=== PATIENT | male | born 1960 | race Caucasian/White ===

== ENCOUNTER → 2016-05-31 | Outpatient (CLI) | payer OTHER ==
[~2016-05-31] MED LIST: ALLO300T2 PO; ASCA500 PO; ATOR-22 PO; CHOL100010 PO; COEN90TA PO; FEXO1TAB49 PO; GLC/500 PO; LOSA1TAB38 PO; MOME50SP5; MULT-506 PO; NSP500 PO; OMEG10007 PO; POLYSOL4 OP; PRLSR20 PO; RSTOPS OPB
--- NOTE | 2016-05-31 09:08 | DIAGNOSTIC IMAGING REPORT ---
Testicular ultrasound CLINICAL HISTORY: N45.1 [id number] Testicular [id number] COMPARISON STUDY: No previous studies for comparison. FINDINGS: The right testis measures 40 x 23 x 20 mm. The left testis measures 41 x 22 x 24 mm. No intratesticular masses are visualized. There is no evidence of testicular torsion. There is a 6 mm right-sided epididymal cyst. There is no ultrasonographic evidence of acute epididymitis. There is a left-sided varicocele. IMPRESSION: 1. No evidence of intratesticular mass 2. No evidence of testicular torsion 3. No ultrasonographic evidence of acute epididymitis 4. 6 mm right-sided epididymal cyst 5. Left-sided varicocele Electronically signed by: Mika Nicolas M.D. 05/31/2016 9:07 AM Dictated Date/Time: 05/31/2016 9:06 AM
== END | disposition home or self-care (01) ==
LOC: C.ULTR 08:26
PROVIDERS: ATTEND Internal Medicine
DX: N45.1 Epididymitis (principal); N50.819 Testicular pain, unspecified; N50.3 Cyst of epididymis

== ENCOUNTER → 2016-09-24 | Outpatient (CLI) | payer OTHER ==
[2016-09-24 12:39] LABS: CHOLESTEROL/HDL RATIO 2.4
[2016-09-24 12:59] LABS: ESTIMATED AVERAGE GLUCOSE 154 mg/dl; HA1C FLAG Normal (Normal)
== END | disposition home or self-care (01) ==
LOC: C.LABBFT 08:46
PROVIDERS: ATTEND Internal Medicine
DX: E11.9 Type 2 diabetes mellitus without complications (principal)

== ENCOUNTER → 2016-10-19 | Outpatient (CLI) | payer OTHER ==
[2016-10-19 17:26] LABS: BASO % 0.7 %; BASO ABS # 0.06 K/uL (0-0.2); COMPLETE YES; EOS % 1.2 %; HEMATOCRIT 47.1 % (42-52); IG% 0.2 %; LYMPH % 29.7 %; LYMPH ABS # 2.44 K/uL (1.2-3.4); MEAN CELL VOLUME 91.3 fL (80-100); MEAN CORPUSCULAR HEMOGLOBIN 32.2 pg (25-34); MEAN CORPUSCULAR HGB CONC 35.2 g/dl (32-36); MEAN PLATELET VOLUME 11.4 fL (7.4-10.4); MONO % 5.6 %; NEUT % 62.6 %; PLATELET COUNT 212 K/uL (130-400); RED BLOOD COUNT 5.16 M/uL (4.7-6.1); WHITE BLOOD COUNT 8.21 K/uL (4.8-10.8)
[2016-10-19 17:41] LABS: ALT/SGPT 57 U/L (12-78); BLOOD UREA NITROGEN 16 mg/dl (7-18); BUN/CREATININE RATIO 16.8 (10-20); CALCIUM 9.4 mg/dl (8.5-10.1); CARBON DIOXIDE 27 mmol/L (21-32); CHLORIDE 102 mmol/L (98-107); CHOLESTEROL 118 mg/dl (0-200); CREATININE 0.96 mg/dl (0.60-1.40); GLUCOSE 213 mg/dl (70-99); POTASSIUM 4.4 mmol/L (3.5-5.1); SODIUM 137 mmol/L (136-145); TRIGLYCERIDES 133 mg/dl (0-150); URIC ACID 3.9 mg/dl (2.6-7.2); VERY LOW DENSITY LIPOPROT CALC 27 mg/dl
[2016-10-19 17:46] LABS: ALKALINE PHOSPHATASE 63 U/L (45-117); AST/SGOT 33 U/L (15-37); CHOLESTEROL/HDL RATIO 2.5; HDL CHOLESTEROL 47 mg/dl; LDL CHOLESTEROL CALCULATED 44 mg/dl; PROSTATE SPECIFIC ANTIGEN 0.751 ng/ml (0.000-4.000)
[2016-10-19 18:19] LABS: RATIO 9.3 mcg/mg (0-30.0)
[2016-10-19 18:41] LABS: ESTIMATED AVERAGE GLUCOSE 146 mg/dl; HA1C FLAG Normal (Normal)
== END | disposition home or self-care (01) ==
LOC: C.LABBFT 11:09
PROVIDERS: ATTEND Physician Assistant Medical
DX: M1A.9XX0 Chronic gout, unspecified, without tophus (tophi) (principal); Z12.5 Encounter for screening for malignant neoplasm of prostate

== ENCOUNTER → 2016-12-28 | Outpatient (CLI) | payer OTHER ==
--- NOTE | 2016-12-28 15:53 | DIAGNOSTIC IMAGING REPORT ---
KUB CLINICAL HISTORY: 56 years-old Male presenting with M54.5 Low back painN52.9 Male erectile disorder of organic origin. TECHNIQUE: Single supine view of the abdomen was obtained. COMPARISON: CT from 09/18/2014 and 09/03/2014.. FINDINGS: No calcifications project over the renal shadows or along the courses of the ureters. Atherosclerosis noted. Possibility of bowel gas in the small bowel, nonspecific. Moderate stool burden in the right colon and rectum. No pneumoperitoneum. Osseous structures normal. IMPRESSION: 1. No acute intra-abdominal pathology. Electronically signed by: Kasi Camacho M.D. 12/28/2016 3:51 PM Dictated Date/Time: 12/28/2016 3:50 PM
== END | disposition home or self-care (01) ==
LOC: C.RAD1850 14:57
PROVIDERS: ATTEND Urology
DX: N52.9 Male erectile dysfunction, unspecified (principal); N50.819 Testicular pain, unspecified; M54.5 Low back pain

== ENCOUNTER → 2017-05-03 | Outpatient (CLI) | payer OTHER ==
[2017-05-03 12:42] LABS: BASO % 1.4 %; BASO ABS # 0.11 K/uL (0-0.2); EOS ABS # 0.31 K/uL (0-0.5); HEMATOCRIT 45.2 % (42-52); IG# 0.01 K/uL (0.00-0.02); LYMPH % 31.1 %; LYMPH ABS # 2.43 K/uL (1.2-3.4); MEAN CELL VOLUME 91.1 fL (80-100); MEAN CORPUSCULAR HEMOGLOBIN 32.3 pg (25-34); MEAN CORPUSCULAR HGB CONC 35.4 g/dl (32-36); MEAN PLATELET VOLUME 11.1 fL (7.4-10.4); MONO % 7.9 %; MONO ABS # 0.62 K/uL (0.11-0.59); NEUT % 55.5 %; NEUT ABS # 4.34 K/uL (1.4-6.5); PLATELET COUNT 204 K/uL (130-400); RED CELL DISTRIBUTION WIDTH SD 42.8 fL (36.4-46.3); WHITE BLOOD COUNT 7.82 K/uL (4.8-10.8)
[2017-05-03 13:03] LABS: HEMOGLOBIN A1C 6.5 % (4.5-5.6)
[2017-05-03 13:24] LABS: ALT/SGPT 61 U/L (12-78); AST/SGOT 36 U/L (15-37); BLOOD UREA NITROGEN 16 mg/dl (7-18); CALCIUM 9.2 mg/dl (8.5-10.1); CARBON DIOXIDE 31 mmol/L (21-32); CREATININE 0.89 mg/dl (0.60-1.40); GLUCOSE 157 mg/dl (70-99); POTASSIUM 4.3 mmol/L (3.5-5.1); SODIUM 138 mmol/L (136-145)
[2017-05-03 13:28] LABS: ALKALINE PHOSPHATASE 59 U/L (45-117); CHOLESTEROL 102 mg/dl (0-200); LDL CHOLESTEROL CALCULATED 34 mg/dl; TOTAL PROTEIN 7.6 gm/dl (6.4-8.2)
== END | disposition home or self-care (01) ==
LOC: C.LABBFT 08:03
PROVIDERS: ATTEND Internal Medicine
DX: I10 Essential (primary) hypertension (principal); E11.9 Type 2 diabetes mellitus without complications

== ENCOUNTER → 2017-10-31 | Outpatient (CLI) | payer OTHER ==
[2017-10-31 12:44] LABS: BLOOD UREA NITROGEN 15 mg/dl (7-18); CREATININE 1.02 mg/dl (0.60-1.40); GLUCOSE 130 mg/dl (70-99)
[2017-10-31 12:45] LABS: ALBUMIN 4.1 gm/dl (3.4-5.0); ALKALINE PHOSPHATASE 59 U/L (45-117); ALT/SGPT 40 U/L (12-78); AST/SGOT 27 U/L (15-37); CALCIUM 9.3 mg/dl (8.5-10.1); CARBON DIOXIDE 29 mmol/L (21-32); CHOLESTEROL 119 mg/dl (0-200); LDL CHOLESTEROL CALCULATED 43 mg/dl; POTASSIUM 4.5 mmol/L (3.5-5.1); SODIUM 140 mmol/L (136-145); TOTAL PROTEIN 7.9 gm/dl (6.4-8.2); URIC ACID 4.2 mg/dl (2.6-7.2)
== END | disposition home or self-care (01) ==
LOC: C.LABBFT 09:07
PROVIDERS: ATTEND Physician Assistant Medical
DX: E11.9 Type 2 diabetes mellitus without complications (principal); R31.29 Other microscopic hematuria; Z12.5 Encounter for screening for malignant neoplasm of prostate; M1A.9XX0 Chronic gout, unspecified, without tophus (tophi)

== ENCOUNTER → 2017-11-08 | Outpatient (CLI) | payer OTHER ==
--- NOTE | 2017-11-08 14:04 | DIAGNOSTIC IMAGING REPORT ---
CT LUNG SCREENING CHEST, LOW DOSE WITH COMPUTER-AIDED DETECTION (CAD) CLINICAL HISTORY: Smoking/tobacco use history. Lung cancer screening. COMPARISON STUDY: CT scan of the thoracic spine dated 01/21/2015. Abdominal CT dated 09/18/2014. CT DOSE: 75.95 mGycm TECHNIQUE: Low-dose helical CT was acquired without intravenous contrast from lung apices to bases and reconstructed at 2.5 mm every 2 mm. CAD was utilized for this study. A dose lowering technique was utilized adhering to the principles of ALARA. FINDINGS: Thyroid: Imaged portions of the thyroid gland are normal in appearance. Thoracic aorta: There is mild atherosclerotic calcification of the thoracic aorta, which is normal in caliber and demonstrates standard 3-vessel arch anatomy. Heart: The heart is top normal in size and without pericardial effusion. The coronary arteries and aortic valve leaflets are calcified. Lungs and pleural spaces: There is no airspace consolidation or pleural effusion. The trachea and central airways are clear. Tiny calcified granulomas are seen in the right middle lobe along the major fissure and at the left lung base. No concerning pulmonary lesion is seen. Mediastinum: There is no mediastinal lymphadenopathy. Anjana: Not well assessed without IV contrast. Axilla: Clear. Upper abdomen: Partially visualized upper abdominal viscera is grossly unremarkable but not well assessed due to streak artifact. Skeletal structures: The skeletal structures are osteopenic. Degenerative change and hyperkyphosis are noted in the thoracic spine. There are mild superior endplate compression deformities of T5 and T6. No lytic or blastic lesion is identified. IMPRESSION: 1. No concerning pulmonary lesion is identified. 2. There is no airspace consolidation or pleural effusion. CAD FINDINGS: Overall Lung RADS Category: 1 Lung RADS Management Recommendation: Continue annual lung cancer screening. Lung RADS Follow Up Date: 2018-11-08 Electronically signed by: Bradley Perez M.D. 11/08/2017 2:03 PM Dictated Date/Time: 11/08/2017 1:54 PM
== END | disposition home or self-care (01) ==
LOC: C.CTS 13:10
PROVIDERS: ATTEND Internal Medicine
DX: Z87.891 Personal history of nicotine dependence (principal)

== ENCOUNTER 2021-08-10 11:15 | Inpatient (IN) ==
[2021-08-10] MEDS ORDERED: EPINEPHrine INJ 1 MG/ML AMP ONE (11:37)
[2021-08-10] MEDS ORDERED: ePHEDrine sulfate 50 MG/ML AMP ONE (11:37)
[2021-08-10] MEDS ORDERED: FAMOTIDINE 20MG IV PUSH 20 MG/5 ML SYR IV STA (11:39)
[2021-08-10] MEDS ORDERED: SODIUM CHLORIDE 0.9% 1000ML 1,000 ML IV ONE (11:39)
[2021-08-10] MEDS ORDERED: STAT IV Infusion **Titration per Protocol STA ×2 (11:39→13:55)
[2021-08-10] MEDS ORDERED: EPINEPHrine INJ 1 MG/ML AMP IM STA (11:39)
[2021-08-10] MEDS ORDERED: EPINEPHrine/NSS 4 MG/254 ML BAG IV SCH (11:45)
[2021-08-10] MEDS ORDERED: SODIUM CHLORIDE 0.9% 1000ML 1,000 ML IV SCH (11:45)
--- NOTE | 2021-08-10 11:45 | Emergency Department Note ---
Impression & Plan Anaphylaxis, Acute hypotension, Elevated lactic acid level, Leukocytosis, Acute hyperglycemia ED Provider Note Name: ROBERT CHACON Jr Age: 61 Sex: M Arrives Via: Ambulance Informant: Patient, EMS, ED Provider: Frederick Hernandez MD Chief Complaint: Allergic reaction Impression: As per impressions above Medical Decision Making: Pleasant 61-year-old gentleman with a history of hypertension, hypercholesterolemia, type 2 diabetes, depression, aortic stenosis, amongst others arrives for evaluation of acute allergic reaction. Patient notes he was not feeling his normal self yesterday but no specific symptoms. This morning awoke with diffuse hives, itching, rash and weakness. Sent to ER for evaluation via EMS. EMS notes hypotension in the field received IM and IV epi in route. He also received Solu-Medrol, Benadryl, Zofran prior to arrival. Patient arrives with diffuse hives, mild upper lip swelling, significant hypotension systolic BPs in the 70s and 80s. On arrival he is in acute anaphylactic shock and thus was given immediate IM epi followed by an IV epi drip. This vastly improved his symptoms with improvement in blood pressure and rash rapidly improving. Patient somewhat somnolent but awakens answers all questions and I think this is due to the Benadryl. He has no recent infections and no findings of infection at this time. He does have a moderate leukocytosis, hyperglycemia and an elevated lactate. This is all consistent with stress response and a persistent hypotension at home thus while blood cultures were obtained I do not feel that antibiotics are at this point indicated without any clear evidence of infection. Patient was maintained on low-dose epi drip peripherally with excellent response to his blood pressure and he is tolerating this well. I had extensive discussion with him and then with and there is no clear indication of what may have incited this event. Patient has no chest pain, shortness of breath, EKG changes nor other concerning signs or symptoms. He does not have any specific headache or neurologic deficits to be of concern at this time. He is got a mild systolic murmur this is consistent with his aortic stenosis that is reported. He tolerated 3 L of fluid in the ER as given his bump in creatinine his hypotension and then his elevated lactic acid. Hospitalist in to see him multiple times and he was transferred to the ICU for further management. Prior Medical Record and Triage/Nursing Notes reviewed by Me Additional history obtained from chart, , EMS Differentials:Allergic reaction, anaphylaxis, urticaria, Camarena-Magdi syndrome, toxic epidermal necrolysis, erythema multiforme, contact dermatitis, cellulitis, as well as other pathologies. Vital Signs: reviewed and remarkable for hypotension Interventions: Epinephrine 0.5 mg IM, epinephrine drip, normal saline bolus 2 L and then 1 L IV Labs:Reviewed and remarkable for elevated lactic acid, hyperglycemia, mild bump in creatinine, leukocytosis Imagin view chest x-ray no acute findings EKG:Per My Interpretation: Indication hypotension: NSR 92 bpm, qtc 479. No Ectopy. No Ischemia. Compared to EKG 09/10/19, no significant changes. Cardiac/Tele Monitoring: Cardiac Monitoring: An Order was placed for continuous cardiac monitoring. The monitor shows a rate of 90 with a normal sinus rhythm. Consults:Dr Hortencia PETERSON Hospitalist Plan: Disposition:Hospitalization. Condition: Fair History of Present Illness:62-year-old gentleman arrives for evaluation of allergic reaction. Patient notes he was not feeling his normal self yesterday but no specific symptoms. This morning he awoke with hives and went to his primary care doctor. On arrival to his PCP he was noted to be hypotensive with diffuse rash. EMS was called. He received epinephrine 0.3 mg IM, epinephrine IV, Benadryl IV, Solu-Medrol IV, Zofran IV and was brought into the ER. Patient notes he is feeling light headed and tired. He has some mild posterior neck soreness which she stated started in the last couple hours though no specific trauma or injuries. He does feel like he may pass out. He denies any chest pain, shortness of breath, back pain, vomiting, fevers, chills, urinary symptoms, diarrhea, leg swelling or other symptoms. He has not had any recent new medications. He said no issues with recent food intake. He has had no recent fish intake. He has no known allergens nor bug bites. He is not sure what could be causing him to have an allergic reaction. He is never had an allergic reaction like this before. He does admit any exertion seems to make him lightheaded but let rest and laying down seems to make him feeling better. Patient does have type 2 diabetes and admits that he did not take his blood sugar measurements recently. ROS: See above HPI for pertinent positives & negatives. A total of 10 systems reviewed and were otherwise negative. Past Medical History:See Below Past Surgical History:See Below Family History:See Below Social History:See Below Home Medications:See Below Allergies:ndka Vitals:Blood Pressure: 85/54, Pulse 96, RR 16, T 36.7C, O2 96% on RA Physical Exam: GENERAL: Patient is tired/weak appearing and in mild distress. EYES: No scleral icterus, unremarkable pupils. ENT: Mucous membranes dry, no nasal congestion. Mild upper lip swelling NECK: No masses appreciated, nomeningismus, trachea is midline. RESPIRATORY: No dyspnea. Clear to auscultation and equal bilaterally. No wheeze, no rhonchi. CARDIOVASCULAR: Regular rate and rhythm.systolic murmur. No rubs nor gallops appreciated. GASTROINTESTINAL: Abdomen soft, non-tender, no peritonitis.Bowel sounds positive.No masses appreciated. BACK: No midline tenderness, no CVA tenderness EXTREMITIES: Normal motion all extremities, no cyanosis, no edema. NEUROLOGIC: Alert and oriented, no acute motor or sensory deficits, no focal weakness, cranial nerves grossly intact. SKIN: Diffuse hives primarily over abdomen, arms, legs PSYCH: Appropriate GCS: 15 ED Course: Times/Reassessments: Patient with vast improvement in the rash and symptoms following IM/IV epinephrine. Patient closely monitored with many repeat evaluations throughout his stay in the ER Critical Care: I have personally spent 42 minutes of critical care time in the direct management of this patient. Acute anaphylactic shock requiring epinephrine IM and IV. This was a life/limb threatening event. This 42 minutes is in excess of all separately billable procedures. Frederick Hernandez MD Past Med/Surg History Medical History Abrasion Back pain Cardiac murmur Depression Diabetes mellitus, type 2 NIDDM GERD (gastroesophageal reflux disease) Gout Hyperlipidemia Hypertension Knee contusion Osteoarthritis Precancerous skin lesion REMOVED Scoliosis Spinal cord tumor C5 - MONITORING; ROM WNL Surgical History History of bunionectomy History of colonoscopy History of esophagogastroduodenoscopy (EGD) History of herniorrhaphy UMBILICAL History of tonsillectomy Family History Aunt Family history of diabetes mellitus Uncle Family history of diabetes mellitus Father Family history of reaction to anesthesia PT REPORTS FATHER W/O ADEQUATE OXYGEN WHILE UNDER ANESTHESIA DURING VALVE REPLACEMENT SURGERY 8 YEARS AGO - COGNITIVE ISSUES SINCE. Coronary heart disease Brother Diabetes Sister Diabetes Grandfather Hypertension Mother Skin cancer Denies family history of Ovarian cancer Prostate cancer Myocardial infarction Breast cancer Colonic polyp Social History Smoking Status: Former smoker Tobacco Type: Cigarettes Cigarettes Per Day: 40; Second Hand Exposure: No; Do You Dip or Chew Tobacco: No; Tobacco Cessation Education Requested by Patient: No Hx Alcohol Use: No Hx Substance Use: No Preferred Language: Nepalese Communication Ability: Effective Rehab Office Coordinator Required: No Beliefs That Will Affect Care: None marital status: Current Living Situation: Spouse Other Information That Helps Us Care for You: No Feels Safe at Home: Yes Safety Concerns: Feels Safe At This Time Childhood Exposure to Second-Hand Smoke: No caffeine: Yes Dental Care, Regularly: Yes Physical Activity Frequency: Does not Exercise Seatbelt Use: always Sunscreen Use: Yes Assistive Devices: Glasses Allergies Allergies Allergy/AdvReac Type Severity Reaction Status Date / Time No Known Allergies Allergy Verified 08/10/21 14:17 Home Meds Home Medications Medication Instructions Recorded Confirmed ascorbic acid (vitamin C) 500 mg 500 mg PO QAM 04/28/18 08/10/21 tablet (Vitamin C) aspirin 81 mg tablet,delayed 81 mg PO QAM 04/28/18 08/10/21 release calcium carb-Ca gluc 500 mg 1 tab PO QAM 04/28/18 08/10/21 calcium-magnesium ox-Mg gluc 250 mg tablet (Calcium Magnesium) cholecalciferol (vitamin D3) 25 1,000 unit PO QAM 04/28/18 08/10/21 mcg (1,000 unit) tablet (Vitamin D3) coQ10 (ubiquinol) 200 mg capsule 200 mg PO QAM 04/28/18 08/10/21 multivitamin 1 tab PO QAM 04/28/18 08/10/21 omeprazole 20 mg delayed 1 tab PO QAM 04/28/18 08/10/21 release,disintegrating tablet fexofenadine 180 mg tablet 180 mg PO QAM 12/06/18 08/10/21 (Laila Allergy) allopurinol 300 mg tablet 300 mg PO QAM 08/10/21 08/10/21 escitalopram oxalate 20 mg tablet 20 mg PO QAM 08/10/21 08/10/21 Previous Rx's Medication Instructions Recorded blood sugar diagnostic (OneTouch #200 ea 12/06/19 Ultra Blue Test Strip) lancets 33 gauge (OneTouch Delica #100 ea 01/24/20 Lancets) metformin 1,000 mg tablet 1,000 mg PO BID #180 tab 09/10/20 flash glucose scanning reader #1 ea 12/29/20 (FreeStyle Sunil 14 Day [place]) flash glucose sensor (FreeStyle #1 ea 12/29/20 Sunil 14 Day Sensor) atorvastatin 20 mg tablet (Lipitor) 20 mg PO HS #90 tab 04/09/21 losartan 100 mg tablet (Cozaar) 100 mg PO QAM #90 tab 04/09/21 empagliflozin 25 mg tablet 25 mg PO QAM #90 tab 07/08/21 linagliptin 5 mg tablet (Tradjenta) 5 mg PO QAM #90 tab 07/08/21 sildenafil (pulm.hypertension) 20 20 mg PO DAILY PRN #90 tab 07/09/21 mg tablet Results & Data (ED) Vital Signs Vital Signs - 24 hr 08/10/21 11:45 08/10/21 12:00 08/10/21 12:15 Pulse Rate 100 H 94 H 102 H Pulse Rate [Apical] Pulse Rate from SpO2 Sensor 93 H 98 H Pulse Rhythm Respiratory Rate 22 21 19 Respiratory Effort / Characteristics Respiratory Depth Blood Pressure 99/57 L Blood Pressure [Left Arm] Blood Pressure Mean 71 Blood Pressure Mean [Left Arm] Blood Pressure Position [Left Arm] Pulse Oximetry 96 93 Oxygen Delivery Method 08/10/21 12:19 08/10/21 12:30 08/10/21 13:10 Pulse Rate 100 H 98 H Pulse Rate [Apical] 104 H Pulse Rate from SpO2 Sensor 97 H Pulse Rhythm Regular Respiratory Rate 21 16 Respiratory Effort / Characteristics Non-Labored Spontaneous Respiratory Depth Normal Blood Pressure 88/57 L Blood Pressure [Left Arm] 91/55 L Blood Pressure Mean 67 Blood Pressure Mean [Left Arm] 67 Blood Pressure Position [Left Arm] Lying Pulse Oximetry 97 93 96 Oxygen Delivery Method Room Air Room Air Laboratory Data Result diagrams: 08/11/21 04:37 08/11/21 04:37 Lab Results 08/10/21 08/10/21 08/10/21 Range/Units 11:49 11:49 11:57 WBC 18.63 H (4.8-10.8) K/uL RBC 6.04 (4.7-6.1) M/uL Hgb 19.5 H (14.0-18.0) g/dL Hct 55.6 H (42-52) % MCV 92.1 (80-100) fL MCH 32.3 (25-34) pg MCHC 35.1 (32-36) g/dL RDW Std Deviation 44.4 (36.4-46.3) fL RDW Coeff of Emma 13.2 (11.5-14.5) % Plt Count 273 (130-400) K/uL MPV 11.5 H (7.4-10.4) fL Immature Gran % (Auto) 0.3 % Neut % (Auto) 84.6 % Lymph % (Auto) 7.6 % Blair % (Auto) 7.2 % Eos % (Auto) 0.2 % Baso % (Auto) 0.1 % Neut # (Auto) 15.78 H (1.4-6.5) K/uL Lymph # (Auto) 1.41 (1.2-3.4) K/uL Blair # (Auto) 1.34 H (0.11-0.59) K/uL Eos # (Auto) 0.03 (0-0.5) K/uL Baso # (Auto) 0.01 (0-0.2) K/uL Immature Gran # (Auto) 0.06 H (0.00-0.02) K/uL Sodium 135 L (136-145) mmol/L Potassium 5.5 H (3.5-5.1) mmol/L Chloride 100 (98-107) mmol/L Carbon Dioxide 23 (21-32) mmol/L Anion Gap 12 H (3-11) BUN 26 H (6-23) mg/dl Creatinine 1.67 H (0.6-1.4) mg/dl Est Cr Clr Drug Dosing 43.6 ml/min Est GFR ( Amer) 50.1 ml/min Est GFR (Non-Af Amer) 43.2 ml/min BUN/Creatinine Ratio 15.6 (10-20) Glucose 426 H* (70-99(Fasting)) mg/dl Lactate (0.4-2.0) mmol/L Calcium 8.8 (8.5-10.1) mg/dl Magnesium 1.8 (1.7-2.4) mg/dl Total Bilirubin 1.6 H (0.2-1.0) mg/dl Direct Bilirubin 0.3 H (0-0.2) mg/dl AST 22 (13-39) U/L ALT 34 (7-52) U/L Alkaline Phosphatase 60 (34-104) U/L Troponin I High Sens 7.8 (0-20) pg/ml Total Protein 7.0 (6.0-8.3) gm/dl Albumin 4.1 (3.4-5.0) gm/dl Lipase 31 (11-82) U/L Procalcitonin SARS-CoV-2, RNA, NAAT NEGATIVE (NEGATIVE) 08/10/21 08/10/21 Range/Units 13:36 13:36 WBC (4.8-10.8) K/uL RBC (4.7-6.1) M/uL Hgb (14.0-18.0) g/dL Hct (42-52) % MCV (80-100) fL MCH (25-34) pg MCHC (32-36) g/dL RDW Std Deviation (36.4-46.3) fL RDW Coeff of Emma (11.5-14.5) % Plt Count (130-400) K/uL MPV (7.4-10.4) fL Immature Gran % (Auto) % Neut % (Auto) % Lymph % (Auto) % Blair % (Auto) % Eos % (Auto) % Baso % (Auto) % Neut # (Auto) (1.4-6.5) K/uL Lymph # (Auto) (1.2-3.4) K/uL Blair # (Auto) (0.11-0.59) K/uL Eos # (Auto) (0-0.5) K/uL Baso # (Auto) (0-0.2) K/uL Immature Gran # (Auto) (0.00-0.02) K/uL Sodium (136-145) mmol/L Potassium (3.5-5.1) mmol/L Chloride (98-107) mmol/L Carbon Dioxide (21-32) mmol/L Anion Gap (3-11) BUN (6-23) mg/dl Creatinine (0.6-1.4) mg/dl Est Cr Clr Drug Dosing ml/min Est GFR ( Amer) ml/min Est GFR (Non-Af Amer) ml/min BUN/Creatinine Ratio (10-20) Glucose (70-99(Fasting)) mg/dl Lactate 7.3 H* (0.4-2.0) mmol/L Calcium (8.5-10.1) mg/dl Magnesium (1.7-2.4) mg/dl Total Bilirubin (0.2-1.0) mg/dl Direct Bilirubin (0-0.2) mg/dl AST (13-39) U/L ALT (7-52) U/L Alkaline Phosphatase (34-104) U/L Troponin I High Sens (0-20) pg/ml Total Protein (6.0-8.3) gm/dl Albumin (3.4-5.0) gm/dl Lipase (11-82) U/L Procalcitonin Cancelled SARS-CoV-2, RNA, NAAT (NEGATIVE) Administered Medications Ascorbic Acid (Ascorbic Acid 500 Mg Tab) 500 mg PO [facility] Stop: 09/10/21 08:59 Last Admin: 08/11/21 08:20 Dose: 500 mg Documented by: [id number] Aspirin (Aspirin 81 Mg Ectab) 81 mg PO [facility] Stop: 09/10/21 08:59 Last Admin: 08/11/21 08:20 Dose: 81 mg Documented by: [id number] Atorvastatin Calcium (Atorvastatin 20 Mg Tab) 20 mg PO [facility] Stop: 09/09/21 20:59 Last Admin: 08/10/21 20:20 Dose: 20 mg Documented by: [id number] Enoxaparin Sodium (Enoxaparin Inj 40 Mg/0.4 Ml Syr) 40 mg SQ [facility] Stop: 09/10/21 08:59 Last Admin: 08/11/21 08:20 Dose: 40 mg Documented by: [id number] Fexofenadine HCl (Fexofenadine Hcl 180 Mg Tab) 180 mg PO [facility] Stop: 09/10/21 08:59 Last Admin: 08/11/21 08:21 Dose: 180 mg Documented by: [id number] Insulin Human Regular 250 (units/ Sodium Chloride) 250 mls @ 4.6 mls/hr IV .Q24H REPLACED BY [facility]; Protocol Stop: 09/09/21 15:54 Last Titration: 08/11/21 11:30 Dose: 4 units/hr, 4 mls/hr Documented by: [id number] Cosigned by: [id number] Titration: 08/11/21 11:00 Dose: 0 units/hr, 0 mls/hr Documented by: [id number] Cosigned by: [id number] Titration: 08/11/21 10:00 Dose: 6.6 units/hr, 6.6 mls/hr Documented by: [id number] Cosigned by: [id number] Titration: 08/11/21 08:47 Dose: 5.5 units/hr, 5.5 mls/hr Documented by: [id number] Cosigned by: [id number] Titration: 08/11/21 07:40 Dose: 4.6 units/hr, 4.6 mls/hr Documented by: [id number] Cosigned by: [id number] Titration: 08/11/21 06:54 Dose: 5.8 units/hr, 5.8 mls/hr Documented by: [id number] Cosigned by: [id number] Titration: 08/11/21 06:46 Dose: 5.8 units/hr, 5.8 mls/hr Documented by: [id number] Cosigned by: [id number] Titration: 08/11/21 05:40 Dose: 5.8 units/hr, 5.8 mls/hr Documented by: [id number] Cosigned by: [id number] Titration: 08/11/21 04:40 Dose: 5.8 units/hr, 5.8 mls/hr Documented by: [id number] Cosigned by: [id number] Titration: 08/11/21 04:08 Dose: 0 units/hr, 0 mls/hr Documented by: [id number] Cosigned by: [id number] Titration: 08/11/21 02:57 Dose: 9.7 units/hr, 9.7 mls/hr Documented by: [id number] Cosigned by: [id number] Titration: 08/11/21 01:08 Dose: 8.1 units/hr, 8.1 mls/hr Documented by: [id number] Cosigned by: [id number] Titration: 08/10/21 23:50 Dose: 10.1 units/hr, 10.1 mls/hr Documented by: [id number] Cosigned by: [id number] Titration: 08/10/21 22:30 Dose: 7.2 units/hr, 7.2 mls/hr Documented by: [id number] Cosigned by: [id number] Titration: 08/10/21 21:33 Dose: 7.2 units/hr, 7.2 mls/hr Documented by: [id number] Cosigned by: [id number] Titration: 08/10/21 20:36 Dose: 6 units/hr, 6 mls/hr Documented by: [id number] Cosigned by: [id number] Titration: 08/10/21 19:10 Dose: 4.3 units/hr, 4.3 mls/hr Documented by: [id number] Cosigned by: [id number] Titration: 08/10/21 19:03 Dose: 3.6 units/hr, 3.6 mls/hr Documented by: [id number] Cosigned by: [id number] Admin: 08/10/21 17:12 Dose: 2.6 units/hr, 2.6 mls/hr Documented by: [id number] Cosigned by: [id number] Insulin Aspart (Insulin Aspart Per Unit) 0 units SC ACHS REPLACED BY [facility] Stop: 09/09/21 16:29 Last Admin: 08/11/21 07:45 Dose: 11 units Documented by: [id number] Cosigned by: [id number] Admin: 08/10/21 20:13 Dose: Not Given Documented by: [id number] Cosigned by: [id number] Admin: 08/10/21 18:24 Dose: Not Given Documented by: [id number] Vitamin D (Cholecalciferol 1,000 Units 25 Mcg Tab) 1,000 units PO QAM REPLACED BY [facility] Stop: 09/10/21 08:59 Last Admin: 08/11/21 08:20 Dose: 1,000 units Documented by: [id number] Discontinued Medications Ephedrine Sulfate (Ephedrine Sulfate 50 Mg/Ml Amp) Confirm Administered Dose 50 mg .ROUTE .STK-MED ONE Stop: 08/10/21 11:38 Last Admin: 08/10/21 11:48 Dose: Not Given Documented by: [id number] Epinephrine HCl (Epinephrine Inj 1 Mg/Ml Amp) Confirm Administered Dose 1 mg .ROUTE .STK-MED ONE Stop: 08/10/21 11:38 Last Admin: 08/10/21 11:48 Dose: Not Given Documented by: [id number] Epinephrine HCl (Epinephrine Inj 1 Mg/Ml Amp) 0.5 mg IM NOW STA Stop: 08/10/21 11:40 Last Admin: 08/10/21 11:43 Dose: 0.5 mg Documented by: [id number] Sodium Chloride (Nss 1000ml) 1,000 mls @ 999 mls/hr IV .Q1H1M ONE Stop: 08/10/21 12:39 Last Infusion: 08/10/21 12:42 Dose: 0 mls/hr Documented by: [id number] Admin: 08/10/21 11:44 Dose: 999 mls/hr Documented by: [id number] Sodium Chloride (Nss 1000ml) 1,000 mls @ 999 mls/hr IV .Q1H1M [facility]ERY Stop: 08/10/21 12:45 Last Infusion: 08/10/21 13:16 Dose: 0 mls/hr Documented by: [id number] Admin: 08/10/21 12:06 Dose: 999 mls/hr Documented by: [id number] Famotidine (Pepcid 20mg Iv Push) 20 mg in 5 mls @ 2.5 mls/min IV NOW STA Stop: 08/10/21 11:40 Last Admin: 08/10/21 11:47 Dose: 2.5 mls/min Documented by: [id number] Epinephrine HCl () 4 mg in 254 mls @ 8.108 mls/hr IV .Q24H [facility]ERY; Protocol Stop: 09/09/21 11:44 Last Titration: 08/11/21 05:55 Dose: 0 mcg/kg/min, 0 mls/hr Documented by: [id number] Titration: 08/11/21 02:59 Dose: 0.01 mcg/kg/min, 4.1 mls/hr Documented by: [id number] Titration: 08/10/21 19:03 Dose: 0.02 mcg/kg/min, 5.1 mls/hr Documented by: [id number] Cosigned by: [id number] Admin: 08/10/21 11:57 Dose: 0.02 mcg/kg/min, 5.1 mls/hr Documented by: [id number] Cosigned by: [id number] Insulin Human Regular 6 units/ (Syringe) 6 mls @ 30 mls/min IV NOW ONE Stop: 08/10/21 13:16 Last Admin: 08/10/21 14:15 Dose: 30 mls/min Documented by: [id number] Cosigned by: [id number] Lactated Ringer's (Lr) 1,000 mls @ 999 mls/hr IV .Q1H1M ONE Stop: 08/10/21 14:28 Last Infusion: 08/10/21 16:00 Dose: 0 mls/hr Documented by: [id number] Admin: 08/10/21 14:15 Dose: 999 mls/hr Documented by: [id number] Magnesium Sulfate/Dextrose (Magnesium Sulfate / D5w) 1 gm in 100 mls @ 50 mls/hr IV Q2H [facility]ERY Stop: 08/10/21 17:29 Last Infusion: 08/10/21 18:44 Dose: 0 mls/hr Documented by: [id number] Admin: 08/10/21 16:30 Dose: 50 mls/hr Documented by: [id number] Infusion: 08/10/21 16:15 Dose: 50 mls/hr Documented by: [id number] Admin: 08/10/21 14:15 Dose: 50 mls/hr Documented by: [id number] Famotidine 20 mg/ Syringe 5 mls @ 2.5 mls/min IV Q12H REPLACED BY [facility] Stop: 09/09/21 15:54 Last Admin: 08/11/21 04:06 Dose: 2.5 mls/min Documented by: [id number] Admin: 08/10/21 18:22 Dose: 2.5 mls/min Documented by: [id number] Hydrocortisone Sodium (Succinate 100 mg/ Syringe) 2 mls @ 4 mls/min IV NOW STA Stop: 08/10/21 20:01 Last Admin: 08/10/21 20:20 Dose: 4 mls/min Documented by: [id number] Hydrocortisone Sodium (Succinate 50 mg/ Syringe) 1 mls @ 4 mls/min IV Q8H [facility] Stop: 08/14/21 03:59 Last Admin: 08/11/21 04:06 Dose: 4 mls/min Documented by: [id number] Insulin Glargine (Insulin Glargine Solostar 100 Units/Ml 3 Ml Pen) 30 units SC ONE ONE Stop: 08/11/21 11:16 Last Admin: 08/11/21 11:31 Dose: 30 units Documented by: [id number] Cosigned by: [id number] Insulin Human Regular (Novolin-R Bolus From Bag) 2.5 units IV ONE ONE Stop: 08/10/21 16:46 Last Admin: 08/10/21 17:05 Dose: 2.5 units Documented by: [id number] Cosigned by: [id number] Miscellaneous (Stat Iv Infusion Titration Per Protocol) 1 ea N/A NOW STA Stop: 08/10/21 11:40 Last Admin: 08/10/21 19:02 Dose: Not Given Documented by: [id number] Kathy (Stat Iv Infusion Titration Per Protocol) 1 ea N/A NOW STA Stop: 08/10/21 13:56 Last Admin: 08/10/21 19:02 Dose: Not Given Documented by: [id number] Kathy (Icu Electrolyte Replacement Protocol) 1 ea N/A BID@06,18 CHERY; Protocol Stop: 08/17/21 17:59 Last Admin: 08/11/21 05:41 Dose: Not Given Documented by: [id number] Admin: 08/10/21 18:31 Dose: Not Given Documented by: [id number] Kathy (Insulin Protocol Goal Range ) 1 ea N/A ONE ONE Stop: 08/10/21 15:56 Last Admin: 08/10/21 16:30 Dose: 1 ea Documented by: [id number] Pantoprazole Sodium (Pantoprazole 40 Mg Tab) 40 mg PO ONE ONE; Protocol Stop: 08/11/21 11:16 Last Admin: 08/11/21 11:31 Dose: 40 mg Documented by: [id number] Discharge Plan Visit Data Chief Complaint: Allergic Reaction ED Provider: Frederick Hernandez Discharge Problem: Anaphylaxis, Acute hypotension, Elevated lactic acid level, Leukocytosis, Acute hyperglycemia Patient Disposition: Admitted As Inpatient Discharge Instructions Interventions: ED Discharge Assessment Last Done: 08/10/21 16:06
[2021-08-10 12:13] LABS: Basophils # (auto) 0.01 K/uL (0-0.2); Basophils % (auto) 0.1 %; Eosinophils # (auto) 0.03 K/uL (0-0.5); Eosinophils % (auto) 0.2 %; Hematocrit (blood only) 55.6 % (42-52); Hemoglobin 19.5 g/dL (14.0-18.0); Immature Granulocytes # (auto) 0.06 K/uL (0.00-0.02); Immature Granulocytes % (auto) 0.3 %; Lymphocytes # (auto) 1.41 K/uL (1.2-3.4); Lymphocytes % (auto) 7.6 %; Mean Corpuscular Hemoglobin 32.3 pg (25-34); Mean Corpuscular Volume 92.1 fL (80-100); Mean Platelet Volume 11.5 fL (7.4-10.4); Monocytes # (auto) 1.34 K/uL (0.11-0.59); Monocytes % (auto) 7.2 %; Neutrophils # (auto) 15.78 K/uL (1.4-6.5); Neutrophils % (auto) 84.6 %; Platelet Count 273 K/uL (130-400); RDW Coefficient of Variation 13.2 % (11.5-14.5); RDW Standard Deviation 44.4 fL (36.4-46.3); Red Blood Count 6.04 M/uL (4.7-6.1); White Blood Count 18.63 K/uL (4.8-10.8)
--- NOTE | 2021-08-10 12:18 | XRay Report ---
XR chest 1V portable HISTORY: hypotension, ill COMPARISON: Chest 09/10/2019. FINDINGS: A few small left basilar linear densities consistent with subsegmental atelectasis or scarr ing. There are low lung volumes. No focal lung consolidations to suggest pneumonia. The heart is top normal in size. No pleural fusions. No pneumothorax. IMPRESSION: A few left basilar linear densities likely representing scarring or subsegmental atelectasis. Otherwi se, no acute process within the chest. ACT 112: Negative or not required by law. Electronically signed by: Stevo Herrera M.D. 08/10/2021 12:16 PM
[2021-08-10 12:21] LABS: Mean Corpuscular Hgb Conc 35.1 g/dL (32-36)
[2021-08-10 12:41] LABS: Troponin I High Sensitivity 7.8 pg/ml (0-20)
[2021-08-10 12:49] LABS: Albumin Level 4.1 gm/dl (3.4-5.0); BUN Creatinine Ratio 15.6 (10-20); Bilirubin Direct 0.3 mg/dl (0-0.2); Bilirubin,Total 1.6 mg/dl (0.2-1.0); Calcium 8.8 mg/dl (8.5-10.1); Creatinine Clr Calc Pharmacy 43.6 ml/min; Est GFR (African American) 50.1 ml/min; Est GFR (Non-African American) 43.2 ml/min; Magnesium 1.8 mg/dl (1.7-2.4); Potassium 5.5 mmol/L (3.5-5.1)
[2021-08-10] MEDS ORDERED: INSULIN HUMAN REGULAR IV STA (12:53)
[2021-08-10] MEDS ORDERED: INSULIN HUMAN REGULAR PER UNIT 6 UNITS in SYRINGE 5.94 ML IV ONE (13:15)
[2021-08-10] MEDS ORDERED: LACTATED RINGER'S 1,000 ML IV ONE (13:28)
--- NOTE | 2021-08-10 13:34 | History & Physical Report ---
Date of Service August 10, 2021 Assessment & Plan (1) SIRS (systemic inflammatory response syndrome): Plan: SIRS response with associated skin rash without viral prodrome or obvious bacterial source- mild increase in his [employer] FINISHING [employer]PER[employer] - DDX- anaphylaxis from unknown exposure vs. viral illness vs. bacterial vs. other - He is without other systemic symptoms of anaphylaxis without wheezing or dyspnea or watery eyes or drainage - Possible food bourne exposure- however delayed response into this morning - Noted increased lactate to 7.3- this is however following doses of epinephrine and now on epinephrine drip- continue to trend- Crystalloid infusion for support of hemodynamics with goal directed resuscitation - Blood culture pending on admission - Biofire and COVID PCR pending on admission- - PCT, CRP, ESR, Urine- pending - As he is afebrile at this time will hold on any antibiotics while biomarkers result as no source at this time - Hold further steroid dosing- follow in am - wean epi as able (2) Leukocytosis: Plan: WBC 18 with NLR 7.5:1- likely hemoconcentrated as well as stress response - follow fever curve and other biomarkers for evidence of bacterial infection - follow UA and Blood cultures - if febrile would add on broad spectrum abx (3) Rash and nonspecific skin eruption: Plan: As above- anaphylaxis vs. viral vs. bacterial vs. other hypersensitivity response - denies any change in soap, laundry detergent, skin creams, or other exposures - follow biofire and cultures (4) FIONA (acute kidney injury): Plan: KATHY II Likely secondary to hypovolemia from SIRS and diarrhea - HCO3 is normal - Awaiting UA to evaluate for protein/blood - baseline 0.9-1.05 (5) Type 2 diabetes mellitus without complication: Plan: Elevated BG to > 400 with normal bicarb and without gap - likely stress response as well as with steroid administration- insulin drip with ICU protocol transition to SSI when pressor requirements are less - lipase is normal (6) Spinal cord tumor: Plan: C5 patient reports this was found incidentally ~15 years ago while workup for thoracic back pain - Reports q 5 year MRI with no changes - Follows with Shaila (7) Hypertension: Plan: Hold ARB in the setting of hypotension (8) Aortic stenosis, moderate: Plan: Continue to optimize volume status - goal directed resuscitation to MAPS, UO, POCUS exams - would tolerate mild hypervolemia to preserve preload (9) Hepatic steatosis: Plan: LFTs normal today- history of elevation - mild elevation of bilirubin (10) Polycythemia: Plan: History of as he has had phlebotomy for this in the past- he follows with hematology for this - He is a little higher than his normal today- which may reflect intravascular volume status secondary to sirs response and diarrhea History of Present Illness Primary Care Provider: Shalom Hoffman MD 61 YOM with medical history of: Polycythemia Vera, Leukocytosis, hepatic steatosis, DM II, aortic stenosis, depression, gout, C5 spinal cord tumor(follows with [facility]- found ~ 15 years ago- 5 year MRIs), post inflammatory hyperpigmentation involving lips and nose, HTN, HLD. Patient comes to the EMD today via EMS secondary to rash to his flank and groin, associated with dizziness. Patient called EMS and received Benadryl x2 and a dose of Solumederol on the way to the EMD. In the EMD the patient received 1 epi pen, famotidine, 2 liters crystalloid and was then started on an epinephrine infusion for refractory hypotension, routine labs and blood cultures were drawn and medicine was consulted for admission. Patient reports that yesterday he went to [facility] and just felt a little queasy in his stomach on the trip, he ate chipped beef on toast prior to going to a play. During that time he got more nauseated and had diarrhea following the play. He slept on the way home and felt better by the time that he got home. He then got up did some errands and ate a sheet. Prior to bed he stared feeling feverish and fatigued, had some more episodes of diarrhea and went to sleep. He woke up this morning at around 430-500 with hives that stared on his right flank and back. He woke up around 630-700 and noted the rash had spread to his other flank, groin, as well as itching to the palm of his hands, but he did not notice rash. He denies feeling any more feveres and diarrhea appears to have resolved. He got up and had a cup of coffee and then started to feel hot flash and get dizzy so he called 911. He took benadryl this morning with no relief. He reports no new medications has been on ARB for many years he endorses. Also denies any recent immunizations or other viral prodrome over the past week. Has 2 dogs but denies any tick bites or ticks noted on him or dogs. Patient will be continued on his epi drip, will provide 1-2 liters more of crystalloid, lactate, CRP, PCT sent, BioFIRE for viral illness sent. Will place on insulin drip as well for his increased glucose and admit to the ICU. COVID- NAAT- NEGATIVE on admission - PCR and BIOFIRE/FLu A/B pending on admission Allergies Allergy/AdvReac Type Severity Reaction Status Date / Time No Known Allergies Allergy Verified 08/10/21 14:17 Home Medications Medication Instructions Recorded Confirmed Type ascorbic acid (vitamin C) 500 mg 500 mg PO QAM 04/28/18 08/10/21 History tablet (Vitamin C) aspirin 81 mg tablet,delayed 81 mg PO QAM 04/28/18 08/10/21 History release calcium carb-Ca gluc 500 mg 1 tab PO QAM 04/28/18 08/10/21 History calcium-magnesium ox-Mg gluc 250 mg tablet (Calcium Magnesium) cholecalciferol (vitamin D3) 25 1,000 unit PO QAM 04/28/18 08/10/21 History mcg (1,000 unit) tablet (Vitamin D3) coQ10 (ubiquinol) 200 mg capsule 200 mg PO QAM 04/28/18 08/10/21 History multivitamin 1 tab PO QAM 04/28/18 08/10/21 History omeprazole 20 mg delayed 1 tab PO QAM 04/28/18 08/10/21 History release,disintegrating tablet fexofenadine 180 mg tablet 180 mg PO [facility] 12/06/18 08/10/21 History (Laila Allergy) blood sugar diagnostic (OneTouch #200 ea 12/06/19 05/29/21 Rx Ultra Blue Test Strip) lancets 33 gauge (OneTouch Delica #100 ea 01/24/20 05/29/21 Rx Lancets) metformin 1,000 mg tablet 1,000 mg PO BID #180 tab 09/10/20 08/10/21 Rx flash glucose scanning reader #1 ea 12/29/20 05/29/21 Rx (FreeStyle Sunil 14 Day [place]) flash glucose sensor (FreeStyle #1 ea 12/29/20 05/29/21 Rx Sunil 14 Day Sensor) atorvastatin 20 mg tablet (Lipitor) 20 mg PO HS #90 tab 04/09/21 08/10/21 Rx losartan 100 mg tablet (Cozaar) 100 mg PO QAM #90 tab 04/09/21 08/10/21 Rx empagliflozin 25 mg tablet 25 mg PO QAM #90 tab 07/08/21 08/10/21 Rx linagliptin 5 mg tablet (Tradjenta) 5 mg PO QAM #90 tab 07/08/21 08/10/21 Rx sildenafil (pulm.hypertension) 20 20 mg PO DAILY PRN #90 tab 07/09/21 08/10/21 Rx mg tablet allopurinol 300 mg tablet 300 mg PO QAM 08/10/21 08/10/21 History escitalopram oxalate 20 mg tablet 20 mg PO QAM 08/10/21 08/10/21 History Past Med/Surg History Medical History Abrasion Back pain Cardiac murmur Depression Diabetes mellitus, type 2 NIDDM GERD (gastroesophageal reflux disease) Gout Hyperlipidemia Hypertension Knee contusion Osteoarthritis Precancerous skin lesion REMOVED Scoliosis Spinal cord tumor C5 - MONITORING; ROM WNL Surgical History History of bunionectomy History of colonoscopy History of esophagogastroduodenoscopy (EGD) History of herniorrhaphy UMBILICAL History of tonsillectomy Family History Aunt Family history of diabetes mellitus Uncle Family history of diabetes mellitus Father Family history of reaction to anesthesia PT REPORTS FATHER W/O ADEQUATE OXYGEN WHILE UNDER ANESTHESIA DURING VALVE REPLACEMENT SURGERY 8 YEARS AGO - COGNITIVE ISSUES SINCE. Coronary heart disease Brother Diabetes Sister Diabetes Grandfather Hypertension Mother Skin cancer Denies family history of Ovarian cancer Prostate cancer Myocardial infarction Breast cancer Colonic polyp Social History Smoking Status: Former smoker Tobacco Type: Cigarettes Cigarettes Per Day: 40; Second Hand Exposure: No; Do You Dip or Chew Tobacco: No; Tobacco Cessation Education Requested by Patient: No Hx Alcohol Use: No Hx Substance Use: No Preferred Language: Guinean Communication Ability: Effective Laboratory Helper Required: No Beliefs That Will Affect Care: None marital status: Current Living Situation: Spouse Other Information That Helps Us Care for You: No Feels Safe at Home: Yes Safety Concerns: Feels Safe At This Time Childhood Exposure to Second-Hand Smoke: No caffeine: Yes Dental Care, Regularly: Yes Physical Activity Frequency: Does not Exercise Seatbelt Use: always Sunscreen Use: Yes Assistive Devices: Glasses Review of Systems Review of Systems: REVIEW OF SYSTEMS: Constitutional: (+) fever, sweats or chills Eyes: No diplopia, no worsening or blurred vision ENT: normal hearing, no trouble swallowing Respiratory: No cough, sputum, dyspnea at rest or on exertion Cardiovascular: (+) dizziness, No chest pain, tightness or palpitations Abdomen: (+) diarrhea, No pain, nausea, vomiting, or constipation Musculoskeletal: No joint pain, calf pain, swelling Neurologic: No weakness, numbness/tingling, or balance problems Psychiatric: No anxiety or depression Skin: (+) rash or itch Physical Exam Physical Exam: PHYSICAL EXAM: General: drowsy but awake, alert, no apparent distress Head: Normocephalic, atraumatic ENT: PERRLA, EOMI, no pharyngeal exudate, mucous membranes dry Neuro: AAO x 3, speech clear and appropriate, strength intact bilaterally 5/5, sensation intact and equal all extremities and dermatomes, no pronator drift Chest: equal rise and fall of the chest, no accessory muscle use, no heaves or thrills, Clear to auscultation without wheeze, on room air, Cardiac: Regular rate and rhythm, telemetry reviewed, skin warm dry, cap refill <3 seconds, peripheral pulses +2 no JVD, grade III systolic murmur at RSB, no edema GI: NABS x 4 quadrants, soft, nontender to palpation, no rebound, guarding or tenderness : Spontaneously voiding, no pain, no CVA tenderness, Extremities: Normal inspection, calfs nontender to palpation Psych: Normal mood and affect Skin:(+) salmon colored patch that is right flank and right back that extends to groin and around umbilicus, left flank with less extent of extension to back and groin. No rash on palms of hands or soles of feet, no pustules, itching has subsided Results & Data Results & Data ([facility] [place]) Vital Signs (Past 12 Hours) Vital Signs Temp Pulse Resp BP Pulse Ox 08/10/21 12:30 98 H 21 88/57 L 93 08/10/21 12:19 100 H 97 08/10/21 12:15 102 H 19 93 08/10/21 12:00 94 H 21 99/57 L 96 08/10/21 11:45 100 H 22 08/10/21 11:30 97 H 22 93 08/10/21 11:26 36.7 C 96 H 16 85/54 L 96 08/10/21 11:23 94 H 22 Laboratory Results Abnormal lab results 08/10/21 08/10/21 Range/Units 11:49 11:49 WBC 18.63 H (4.8-10.8) K/uL Hgb 19.5 H (14.0-18.0) g/dL Hct 55.6 H (42-52) % MPV 11.5 H (7.4-10.4) fL Neut # (Auto) 15.78 H (1.4-6.5) K/uL Blair # (Auto) 1.34 H (0.11-0.59) K/uL Immature Gran # (Auto) 0.06 H (0.00-0.02) K/uL Sodium 135 L (136-145) mmol/L Potassium 5.5 H (3.5-5.1) mmol/L Anion Gap 12 H (3-11) BUN 26 H (6-23) mg/dl Creatinine 1.67 H (0.6-1.4) mg/dl Glucose 426 H* (70-99(Fasting)) mg/dl Total Bilirubin 1.6 H (0.2-1.0) mg/dl Direct Bilirubin 0.3 H (0-0.2) mg/dl Diagnostic Findings Chest X-Ray 08/10/21 11:39 XR chest 1V portable HISTORY: hypotension, ill COMPARISON: Chest 09/10/2019. FINDINGS: A few small left basilar linear densities consistent with subsegmental atelectasis or scarring. There are low lung volumes. No focal lung consolidations to suggest pneumonia. The heart is top normal in size. No pleural fusions. No pneumothorax. IMPRESSION: A few left basilar linear densities likely representing scarring or subsegmental atelectasis. Otherwise, no acute process within the chest. ACT 112: Negative or not required by law. Electronically signed by: Stevo Herrera M.D. 08/10/2021 12:16 PM Medications Administered Home Medications ascorbic acid (vitamin C) 500 mg tablet (Vitamin C) 500 mg PO QAM 04/28/18 [History Confirmed 05/29/21] aspirin 81 mg tablet,delayed release 81 mg PO QAM 04/28/18 [History Confirmed 05/29/21] calcium carb-Ca gluc 500 mg calcium-magnesium ox-Mg gluc 250 mg tablet (Calcium Magnesium) 1 tab PO QAM 04/28/18 [History Confirmed 05/29/21] cholecalciferol (vitamin D3) 25 mcg (1,000 unit) tablet (Vitamin D3) 1,000 unit PO QAM 04/28/18 [History Confirmed 05/29/21] coQ10 (ubiquinol) 200 mg capsule 200 mg PO QAM 04/28/18 [History Confirmed 05/29/21] multivitamin 1 tab PO QAM 04/28/18 [History Confirmed 05/29/21] omeprazole 20 mg delayed release,disintegrating tablet 1 tab PO QAM 04/28/18 [History Confirmed 05/29/21] fexofenadine 180 mg tablet (Laila Allergy) 180 mg PO QAM 12/06/18 [History Confirmed 05/29/21] metformin 500 mg tablet (Glucophage) 500 mg PO QDL 09/10/19 [History Confirmed 05/29/21] blood sugar diagnostic ([employer] Ultra Blue Test Strip) #200 ea 12/06/19 [Rx Confirmed 05/29/21] lancets 33 gauge (OneTouch Delica Lancets) #100 ea 01/24/20 [Rx Confirmed 05/29/21] allopurinol 300 mg tablet (Zyloprim) 300 mg PO QAM #90 tab 09/10/20 [Rx Confirmed 05/29/21] metformin 1,000 mg tablet 1,000 mg PO BID #180 tab 09/10/20 [Rx Confirmed 05/29/21] flash glucose scanning reader (DIT[employer]comStyle Sunil 14 Day [place]) #1 ea 12/29/20 [Rx Confirmed 05/29/21] flash glucose sensor (FreeStyle Sunil 14 Day Sensor) #1 ea 12/29/20 [Rx Confirmed 05/29/21] escitalopram oxalate 20 mg tablet 20 mg PO DAILY #90 tab 03/12/21 [Rx Confirmed 05/29/21] atorvastatin 20 mg tablet (Lipitor) 20 mg PO HS #90 tab 04/09/21 [Rx Confirmed 05/29/21] losartan 100 mg tablet (Cozaar) 100 mg PO QAM #90 tab 04/09/21 [Rx Confirmed 05/29/21] empagliflozin 25 mg tablet 25 mg PO QAM #90 tab 07/08/21 [Rx] linagliptin 5 mg tablet (Tradjenta) 5 mg PO QAM #90 tab 07/08/21 [Rx] sildenafil (pulm.hypertension) 20 mg tablet 20 mg PO DAILY PRN #90 tab 07/09/21 [Rx] Active Medications Epinephrine HCl () 4 mg in 254 mls @ 5.121 mls/hr IV .Q24H CHERY; Protocol Stop: 09/09/21 11:44 Last Admin: 08/10/21 11:57 Dose: 0.02 mcg/kg/min, 5.1 mls/hr Documented by: Lactated Ringer's (Lr) 1,000 mls @ 999 mls/hr IV .Q1H1M ONE Stop: 08/10/21 14:28 Magnesium Sulfate/Dextrose (Magnesium Sulfate / D5w) 1 gm in 100 mls @ 50 mls/hr IV Q2H CHERY Stop: 08/10/21 17:29 Epinephrine HCl () 4 mg in 254 mls @ 5.121 mls/hr IV .Q24H [facility]; Protocol Stop: 09/09/21 11:44 Last Admin: 08/10/21 11:57 Dose: 0.02 mcg/kg/min, 5.1 mls/hr Documented by: [id number] Cosigned by: [id number] Discontinued Medications Ephedrine Sulfate (Ephedrine Sulfate 50 Mg/Ml Amp) Confirm Administered Dose 50 mg .ROUTE .STK-MED ONE Stop: 08/10/21 11:38 Last Admin: 08/10/21 11:48 Dose: Not Given Documented by: [id number] Epinephrine HCl (Epinephrine Inj 1 Mg/Ml Amp) Confirm Administered Dose 1 mg .ROUTE .STK-MED ONE Stop: 08/10/21 11:38 Last Admin: 08/10/21 11:48 Dose: Not Given Documented by: [id number] Epinephrine HCl (Epinephrine Inj 1 Mg/Ml Amp) 0.5 mg IM NOW STA Stop: 08/10/21 11:40 Last Admin: 08/10/21 11:43 Dose: 0.5 mg Documented by: [id number] Sodium Chloride (Nss 1000ml) 1,000 mls @ 999 mls/hr IV .Q1H1M ONE Stop: 08/10/21 12:39 Last Infusion: 08/10/21 12:42 Dose: 0 mls/hr Documented by: [id number] Admin: 08/10/21 11:44 Dose: 999 mls/hr Documented by: [id number] Sodium Chloride (Nss 1000ml) 1,000 mls @ 999 mls/hr IV .Q1H1M CHERY Stop: 08/10/21 12:45 Last Infusion: 08/10/21 13:16 Dose: 0 mls/hr Documented by: [id number] Admin: 08/10/21 12:06 Dose: 999 mls/hr Documented by: [id number] Famotidine (Pepcid 20mg Iv Push) 20 mg in 5 mls @ 2.5 mls/min IV NOW STA Stop: 08/10/21 11:40 Last Admin: 08/10/21 11:47 Dose: 2.5 mls/min Documented by: [id number] ECG Additional Comments: Normal sinus rhythm with sinus arrhythmia Normal ECG When compared with ECG of 10-SEP-2019 16:49, Nonspecific T wave abnormality no longer evident in Lateral leads Code Status & VTE Plan Code Status CODE: FULL VTE: SCDs, Lovenox 40mg SUB q daily Supervising Physician Co-Signing Physician Notes Attending addendum: I have physically seen this patient, have supervised the CHINO's activities, and agree with the H&P unless as otherwise noted. Assessment and Plan: SIRS/hypotension/rash/skin eruption The patient will be admitted to the ICU for serial cardiac enzymes, serial EKG's, cardiac rhythm monitoring and a 2-D echocardiogram with Dopplers. Main differential including anaphylaxis from unknown exposure versus viral illness versus viral bacterial infection versus chemical versus other exposure Unclear exposure at this time Follow blood cultures sensitivity Follow urine culture sensitivity Bio fire and COVID-19 PCR pending Continue epinephrine for now, and wean as symptoms improve Acute kidney injury- Creatinine 1.67 on admission, with range 0.9-1.0. Potassium 5.5 Rehydration with NSS and recheck laboratories in a.m. Diabetes mellitus- Glucose 426 upon admission ICU hyperglycemic protocol Check hemoglobin A1c Remaining orders and notations as noted PG Care Time/CCT Total # of Minutes Spent Total Time Spent with Patient: Total time spent is greater than 50% in coordination of care (as documented) at patient's floor/unit and/or counseling patient: Prolonged Care Time 25 minutes extended time- time spent independently reviewing images, interpreting labs, coordinating care with chief investment officer Coding Level of Care Code 53688 Initial Inpt Care Lvl 3 Diagnoses Leukocytosis D72.829 Rash and nonspecific skin eruption R21 Type 2 diabetes mellitus without complication E11.9 Spinal cord tumor D49.7 Hypertension I10 Aortic stenosis, moderate I35.0 Hepatic steatosis K76.0 FIONA (acute kidney injury) N17.9 SIRS (systemic inflammatory response syndrome) R65.10 Polycythemia D75.1
[2021-08-10] MEDS: MAGNESIUM SULFATE / D5W 1 GM/100 ML BAG IV SCH ×2 (14:15→16:30)
[2021-08-10 14:59] LABS: Appearance Urine Clear (Clear); Bilirubin Urine Negative (Negative); Blood Urine Negative (Negative); Color Urine Yellow; Glucose Urine UA 3+ (Negative); Ketones Urine 1+ (Negative); Leukocyte Esterase Urine Negative (Negative); Nitrite Urine Negative (Negative); Protein Urine Negative (Negative); Specific Gravity Urine 1.033 (1.000-1.030); Urobilinogen Urine Negative (Negative)
[2021-08-10 15:33] LABS: Adenovirus PCR Not Detected (NotDetected); Bordetella parapertussis PCR Not Detected (NotDetected); Bordetella pertussis PCR Not Detected (NotDetected); Chlamydia pneumoniae PCR Not Detected (NotDetected); Coronavirus 229E PCR Not Detected (NotDetected); Coronavirus CoV-2 (COVID19)PCR Not Detected (NotDetected); Coronavirus HKU1 PCR Not Detected (NotDetected); Coronavirus NL63 PCR Not Detected (NotDetected); Coronavirus OC43PCR Not Detected (NotDetected); Human Metapneumovirus PCR Not Detected (NotDetected); Influenza A PCR Not Detected (NotDetected); Influenza B PCR Not Detected (NotDetected); Mycoplasma pneumoniae PCR Not Detected (NotDetected); Parainfluenza Virus 1 PCR Not Detected (NotDetected); Parainfluenza Virus 2 PCR Not Detected (NotDetected); Parainfluenza Virus 3 PCR Not Detected (NotDetected); Parainfluenza Virus 4 PCR Not Detected (NotDetected); Respiratory Syncytial VirusPCR Not Detected (NotDetected); Rhinovirus/Enterovirus PCR Not Detected (NotDetected)
[2021-08-10] MEDS ORDERED: INSULIN REGULAR 250 UNITS in SODIUM CHLORIDE 0.9% 247.5 ML IV SCH (15:55)
[2021-08-10] MEDS ORDERED: INSULIN PROTOCOL GOAL RANGE ONE (15:55)
[2021-08-10] MEDS ORDERED: ICU PROTOCOL FOR HYPERGLYCEMIA PRN (15:55)
[2021-08-10] MEDS ORDERED: CARBOHYDRATES FOR HYPOGLYCEMIA PO PRN (16:30)
[2021-08-10] MEDS ORDERED: GLUCAGON FOR INJ 1 MG VIAL IM PRN (16:30)
[2021-08-10] MEDS ORDERED: NovoLIN-R BOLUS FROM BAG IV ONE ×2 (16:30→16:45)
[2021-08-10] MEDS ORDERED: GLUCOSE 40% GEL 15 GM TUBE PO PRN (16:30)
[2021-08-10] MEDS ORDERED: GLUCOSE 10 TABS/TUBE PO PRN (16:30)
[2021-08-10] MEDS ORDERED: DEXTROSE 50% 50 ML SYRINGE IV PRN (16:30)
[2021-08-10] MEDS: FAMOTIDINE 20 MG in SYRINGE 3 ML IV SCH (18:22)
[2021-08-10] MEDS: INSULIN ASPART PER UNIT SC SCH ×2 (18:24→20:13)
[2021-08-10] MEDS: ICU ELECTROLYTE REPLACEMENT PROTOCOL SCH (18:31)
[2021-08-10 18:54] LABS: Amphetamines+Metham, Urine Neg (Neg); Barbiturates, Urine Neg (Neg); Benzodiazepine, Urine Neg (Neg); Cocaine, Urine Neg (Neg); MDMA (Ecstacy), Urine Neg (Neg); Methadone, Urine Neg (Neg); Opiate, Urine Neg (Neg); Phencyclidine, Urine Neg (Neg)
--- NOTE | 2021-08-10 19:36 | Critical Care Consultation ---
Date of Consultation August 10, 2021 Assessment & Plan (1) Admitted to intensive care unit: Reason Critically Ill: 61-year-old male with acute anaphylaxis to like reaction of questionable source requiring close hemodynamic monitoring while on epinephrine drip. NEURO - * CAM ICU: NEGATIVE * Compression: Continue outpatient medications as CARDIAC/VASCULAR - * Hypotension: * Secondary to anaphylaxis. * Received Epi x3 in the ED. * On low dose Epi gtt at this time. Titrate down as tolerated. * Random cortisol low - will add stress dose hydrocortisone as this will benefit pressure and systemic reaction. * Continue w/ H2 blockers. * Albuterol nebs if needed. * Monitor on telemetry. RESPIRATORY - * No h/o Pulmonary disease. * Requiring 2L NC currently. * Albuterol treatments as needed. GI/NUTRITION - * Progress diet as tolerated RENAL/LYTES - * FIONA/Hyperkalemia: * s/p 3 L crystalloid in the ED. * Labs improving. * Making good urine. * Likely prerenal in the setting of hypotension. - * No concerns at this time. ENDO - * DMII w/ hyperglycemia: * BSGs per unit protocol. ISS --> gtt per unit policy. HEME - * Polycythemia Vera: * Question if this may be contributing to a degree of mast cell activation in the absence of other causes of anaphylaxis?? ID - * Certainly an infectious cause can result in described rashes, but workup has not suggested such to this point. * Will check Lyme titers. * Will add AM LFTs to assess for other possible infectious causes as well. LINES/IV ACCESS - * PIVs x2 DVT PROPHYLAXIS - * Lovenox * SCDs I have personally spent 32 minutes of critical care time in the direct management of this patient. This is a life/limb threatening event. This includes time spent evaluating patient, direct bedside care, chart review, placing orders, interpretation of diagnostic studies, discussion with consultants, patient, and family members, as well as other required patient management activities. This time is exclusive of all separately billable procedures, and teaching time and separate from and in addition to any other critical care service time. Thank you for allowing us to participate in the care of this patient. Please refer to my attending physician's documentation for any further recommendations. (2) SIRS (systemic inflammatory response syndrome): (3) Polycythemia: (4) FIONA (acute kidney injury): (5) Rash and nonspecific skin eruption: (6) Acute hypotension: (7) Leukocytosis: (8) Hyperglycemia: (9) Hypertension: (10) Depression: History of Present Illness Attending Physician: Suman Burnett MD History of Present Illness Patient is a 61-year-old male with a past medical history significant for hepatic steatosis, depression, aortic stenosis, hypertension, hyperlipidemia, type 2 diabetes, spinal cord tumor, and polycythemia. Patient reports that he has been feeling tired over the last few days, but has equated that to driving [employer] into the late hours of the night. Additionally, he does report that yesterday he was feeling some nausea. When he woke up at approximately 4:35 AM, he noticed hives down his RIGHT side as well as his groin area. This was complicated by being extremely lightheaded and having significant weakness. His brother drove him to the primary care provider's office where he was evaluated and found to be hypotensive. He was directed to the emergency department via EMS for concerns for anaphylactic reaction. Patient received epinephrine x3 and started on a drip in the emergency department. Patient also received H2 keesha, fluid resuscitation, and insulin drip. Patient was noted to have an FIONA with slight hyperkalemia. He received 3 L crystalloid as well. Upon evaluation of the patient in the ICU, the patient was awake, alert, and oriented. He reports feeling much better at this time. Reports complete resolve of rash. He specifically denies complaints of chest pain, SOB, COLLIER, dizziness, nausea, vomiting, visual disturbance, abdominal discomfort, or numbness/weakness to the extremities. Patient denies any new exposures, detergents, colognes, foods, medications, etc. Allergies Allergy/AdvReac Type Severity Reaction Status Date / Time No Known Allergies Allergy Verified 08/10/21 14:17 Home Medications Medication Instructions Recorded Confirmed Type ascorbic acid (vitamin C) 500 mg 500 mg PO QAM 04/28/18 08/10/21 History tablet (Vitamin C) aspirin 81 mg tablet,delayed 81 mg PO QAM 04/28/18 08/10/21 History release calcium carb-Ca gluc 500 mg 1 tab PO QAM 04/28/18 08/10/21 History calcium-magnesium ox-Mg gluc 250 mg tablet (Calcium Magnesium) cholecalciferol (vitamin D3) 25 1,000 unit PO QAM 04/28/18 08/10/21 History mcg (1,000 unit) tablet (Vitamin D3) coQ10 (ubiquinol) 200 mg capsule 200 mg PO QAM 04/28/18 08/10/21 History multivitamin 1 tab PO QAM 04/28/18 08/10/21 History omeprazole 20 mg delayed 1 tab PO QAM 04/28/18 08/10/21 History release,disintegrating tablet fexofenadine 180 mg tablet 180 mg PO QAM 12/06/18 08/10/21 History (Laila Allergy) blood sugar diagnostic (StreemTouch #200 ea 12/06/19 05/29/21 Rx Ultra Blue Test Strip) lancets 33 gauge (OneTouch Delica #100 ea 01/24/20 05/29/21 Rx Lancets) metformin 1,000 mg tablet 1,000 mg PO BID #180 tab 09/10/20 08/10/21 Rx flash glucose scanning reader #1 ea 12/29/20 05/29/21 Rx (FreeStyle Sunil 14 Day [place]) flash glucose sensor (FreeStyle #1 ea 12/29/20 05/29/21 Rx Sunil 14 Day Sensor) atorvastatin 20 mg tablet (Lipitor) 20 mg PO HS #90 tab 04/09/21 08/10/21 Rx losartan 100 mg tablet (Cozaar) 100 mg PO QAM #90 tab 04/09/21 08/10/21 Rx empagliflozin 25 mg tablet 25 mg PO QAM #90 tab 07/08/21 08/10/21 Rx linagliptin 5 mg tablet (Tradjenta) 5 mg PO QAM #90 tab 07/08/21 08/10/21 Rx sildenafil (pulm.hypertension) 20 20 mg PO DAILY PRN #90 tab 07/09/21 08/10/21 Rx mg tablet allopurinol 300 mg tablet 300 mg PO QAM 08/10/21 08/10/21 History escitalopram oxalate 20 mg tablet 20 mg PO QAM 08/10/21 08/10/21 History Patient History Medical History Abrasion Back pain Cardiac murmur Depression Diabetes mellitus, type 2 NIDDM GERD (gastroesophageal reflux disease) Gout Hyperlipidemia Hypertension Knee contusion Osteoarthritis Precancerous skin lesion REMOVED Scoliosis Spinal cord tumor C5 - MONITORING; ROM WNL Surgical History History of bunionectomy History of colonoscopy History of esophagogastroduodenoscopy (EGD) History of herniorrhaphy UMBILICAL History of tonsillectomy Family History Aunt Family history of diabetes mellitus Uncle Family history of diabetes mellitus Father Family history of reaction to anesthesia PT REPORTS FATHER W/O ADEQUATE OXYGEN WHILE UNDER ANESTHESIA DURING VALVE REPLACEMENT SURGERY 8 YEARS AGO - COGNITIVE ISSUES SINCE. Coronary heart disease Brother Diabetes Sister Diabetes Grandfather Hypertension Mother Skin cancer Denies family history of Ovarian cancer Prostate cancer Myocardial infarction Breast cancer Colonic polyp Social History Smoking Status: Former smoker Tobacco Type: Cigarettes Cigarettes Per Day: 40; Second Hand Exposure: No; Do You Dip or Chew Tobacco: No; Tobacco Cessation Education Requested by Patient: No Hx Alcohol Use: No Hx Substance Use: No Preferred Language: Yi Communication Ability: Effective Airplane Cover Maker Required: No Beliefs That Will Affect Care: None Current Living Situation: Spouse Other Information That Helps Us Care for You: No Feels Safe at Home: Yes Safety Concerns: Feels Safe At This Time Childhood Exposure to Second-Hand Smoke: No caffeine: Yes Dental Care, Regularly: Yes Physical Activity Frequency: Does not Exercise Seatbelt Use: always Sunscreen Use: Yes Assistive Devices: Glasses Review of Systems Review of Systems: A complete 10 point review of systems was reviewed with the patient with pertinent positives and negatives as per history of present illness. All else were negative. Physical Exam Physical Exam: VITAL SIGNS - Vital signs and nursing notes were reviewed. GENERAL - 61-year-old male appearing his stated age. Communicates well with provider and answers questions appropriately. SKIN - Gross examination of the entire body surface demonstrates no urticaria throughout. No excoriations or lesions noted otherwise. HEAD - Normocephalic, Atraumatic. EYES - PERRL with EOMI bilaterally. Without periorbital edema. Palpebral conjunctiva pink and moist with no injection. EARS - No deformities of external structures noted on gross examination bilaterally. NOSE - Midline and without cyanosis. No epistaxis or clear watery discharge noted. Septum midline without deviation. MOUTH/OROPHARYNX - Without perioral cyanosis. No angioedema appreciated. Tongue midline with equal elevation of palate bilaterally. No tonsillar hypertrophy, erythema, or exudates noted. Good dentition noted. NECK - Supple to palpation. LUNGS - Chest wall symmetric without accessory muscle use, intercostals retractions, or central cyanosis. Without stridor. No active wheezes. Normal vesicular breath sounds CTA B/L. No rales or rhonchi appreciated. CARDIAC - RRR with S1/S2. No murmur, rubs, or gallops appreciated. ABDOMEN - Abdominal contour flat without pulsations or visible masses. BS normoactive all four quadrants. No rebound tenderness or guarding noted. No tenderness, palpable masses, hepatosplenomegaly, or ascites noted. EXTREMITIES - No gross deformities noted of the extremities. +3/5 radial and dorsalis pedis pulses palpated throughout. +5/5 strength noted in UE/LE bilaterally. NEUROLOGIC - Cranial nerves II through XII grossly intact. Sensory intact to light touch throughout. PSYCH - A&Ox3 and cooperates fully with examiner. Pt is very pleasant and interacts well with examiner. Results & Data Results & Data ([facility]) Vital Signs (Past 12 Hours) Vital Signs Temp Pulse Pulse Resp BP BP Pulse Ox 08/10/21 18:50 102 H 22 92 08/10/21 18:45 109 H 22 89/58 L 92 08/10/21 18:40 107 H 24 92 08/10/21 18:30 109 H 18 94/59 L 91 08/10/21 18:20 109 H 12 90 08/10/21 18:15 113 H 23 99/63 L 92 08/10/21 18:10 108 H 20 91 08/10/21 18:00 110 H 20 101/64 92 08/10/21 17:50 110 H 14 96 08/10/21 17:45 107 H 15 97/60 L 94 08/10/21 17:40 112 H 18 90 08/10/21 17:30 112 H 20 106/51 L 94 08/10/21 17:20 107 H 21 93 08/10/21 17:15 108 H 21 88/53 L 91 08/10/21 17:10 111 H 22 92 08/10/21 17:00 111 H 24 91/53 L 91 08/10/21 16:50 114 H 18 93 08/10/21 16:45 118 H 21 100/61 94 08/10/21 16:40 118 H 16 93 08/10/21 16:31 125 H 20 119/66 93 08/10/21 16:30 121 H 25 H 93 08/10/21 16:20 115 H 13 93 08/10/21 16:15 112 H 15 94/55 L 92 08/10/21 16:10 116 H 24 89 L 08/10/21 16:00 36.6 C 113 H 108 H 18 97/59 L 97/64 L 89 L 08/10/21 15:54 109 H 15 97/64 L 93 08/10/21 15:50 110 H 14 93 08/10/21 15:42 114 H 16 08/10/21 15:00 36.8 C 89 18 101/58 L 97 08/10/21 14:00 103 H 15 99/54 L 96 08/10/21 13:10 104 H 16 91/55 L 96 08/10/21 12:30 98 H 21 88/57 L 93 08/10/21 12:19 100 H 97 08/10/21 12:15 102 H 19 93 08/10/21 12:00 94 H 21 99/57 L 96 08/10/21 11:45 100 H 22 08/10/21 11:30 97 H 22 93 08/10/21 11:26 36.7 C 96 H 16 85/54 L 96 08/10/21 11:23 94 H 22 Coding Level of Care Code Critical Care 1st 30-74 mins Diagnoses Admitted to intensive care unit Z78.9 SIRS (systemic inflammatory response syndrome) R65.10 Polycythemia D75.1 FIONA (acute kidney injury) N17.9 Rash and nonspecific skin eruption R21 Acute hypotension I95.9 Leukocytosis D72.829 Hyperglycemia R73.9 Hypertension I10 Depression F32.9 Time Spent (min) 32
[2021-08-10] MEDS ORDERED: HYDROCORTISONE SOD 100 MG in SYRINGE 0 ML IV STA (20:00)
[2021-08-10] MEDS ORDERED: ALBUTEROL 0.083% NEBU SOLN 3 ML VIAL INH PRN (20:17)
[2021-08-10] MEDS ORDERED: diphenhydrAMINE 50 MG/ML VIAL IV PRN (20:21)
[2021-08-10] MEDS ORDERED: ATORVASTATIN 20 MG TAB PO SCH (21:00)
[2021-08-10 21:17] LABS: BUN Creatinine Ratio 20.5 (10-20); Calcium 8.7 mg/dl (8.5-10.1); Est GFR (African American) 69.7 ml/min; Est GFR (Non-African American) 60.2 ml/min; Magnesium 2.4 mg/dl (1.7-2.4); Phosphorus 2.2 mg/dl (2.5-4.9); Potassium 4.4 mmol/L (3.5-5.1)
[2021-08-11] MEDS ORDERED: HYDROCORTISONE SOD 50 MG in SYRINGE 0 ML IV SCH (04:00)
[2021-08-11] MEDS: FAMOTIDINE 20 MG in SYRINGE 3 ML IV SCH (04:06)
[2021-08-11 05:24] LABS: Basophils # (auto) 0.01 K/uL (0-0.2); Basophils % (auto) 0.1 %; Eosinophils # (auto) 0.03 K/uL (0-0.5); Eosinophils % (auto) 0.2 %; Hematocrit (blood only) 44.8 % (42-52); Hemoglobin 15.6 g/dL (14.0-18.0); Immature Granulocytes # (auto) 0.06 K/uL (0.00-0.02); Immature Granulocytes % (auto) 0.4 %; Lymphocytes # (auto) 1.43 K/uL (1.2-3.4); Lymphocytes % (auto) 8.8 %; Mean Corpuscular Hemoglobin 31.5 pg (25-34); Mean Corpuscular Hgb Conc 34.8 g/dL (32-36); Mean Corpuscular Volume 90.3 fL (80-100); Mean Platelet Volume 10.9 fL (7.4-10.4); Monocytes # (auto) 1.12 K/uL (0.11-0.59); Monocytes % (auto) 6.9 %; Neutrophils # (auto) 13.58 K/uL (1.4-6.5); Neutrophils % (auto) 83.6 %; Platelet Count 242 K/uL (130-400); RDW Coefficient of Variation 13.2 % (11.5-14.5); RDW Standard Deviation 42.9 fL (36.4-46.3); Red Blood Count 4.96 M/uL (4.7-6.1); White Blood Count 16.23 K/uL (4.8-10.8)
[2021-08-11 05:37] LABS: Albumin Level 3.7 gm/dl (3.4-5.0); BUN Creatinine Ratio 28.7 (10-20); Bilirubin Direct 0.1 mg/dl (0-0.2); Bilirubin,Total 0.6 mg/dl (0.2-1.0); Calcium 8.8 mg/dl (8.5-10.1); Creatinine Clr Calc Pharmacy 102.7 ml/min; Est GFR (African American) 100.3 ml/min; Est GFR (Non-African American) 86.5 ml/min; Magnesium 2.4 mg/dl (1.7-2.4); Phosphorus 3.1 mg/dl (2.5-4.9); Potassium 4.3 mmol/L (3.5-5.1); Total Protein 6.1 gm/dl (6.0-8.3)
[2021-08-11] MEDS: ICU ELECTROLYTE REPLACEMENT PROTOCOL SCH (05:41)
[2021-08-11] MEDS: INSULIN ASPART PER UNIT SC SCH ×2 (07:45→11:58)
[2021-08-11 08:08] LABS: Lyme Ab IgG w/WB Rflx Negative (Negative); Lyme Ab IgM w/WB Rflx Negative (Negative)
[2021-08-11] MEDS ORDERED: ASPIRIN 81 MG ECTAB PO SCH (09:00)
[2021-08-11] MEDS ORDERED: ENOXAPARIN INJ 40 MG/0.4 ML SYR SQ SCH (09:00)
[2021-08-11] MEDS ORDERED: ASCORBIC ACID 500 MG TAB PO SCH (09:00)
[2021-08-11] MEDS ORDERED: ESCITALOPRAM OXALATE 20 MG TAB PO SCH ×2 (09:00→12:00)
[2021-08-11] MEDS ORDERED: FEXOFENADINE HCL 180 MG TAB PO SCH (09:00)
[2021-08-11] MEDS ORDERED: allopurinoL 300 MG TAB PO SCH (09:00)
[2021-08-11] MEDS ORDERED: CHOLECALCIFEROL 1,000 UNITS 25 MCG TAB PO SCH (09:00)
[2021-08-11] MEDS ORDERED: PANTOprazole 40 MG in SYRINGE 0 ML IV SCH (11:00)
[2021-08-11] MEDS ORDERED: PANTOprazole 40 MG TAB PO ONE (11:15)
[2021-08-11] MEDS ORDERED: INSULIN GLARGINE SOLOSTAR 100 UNITS/ML 3 ML PEN SC ONE (11:15)
--- NOTE | 2021-08-11 15:20 | Discharge Summary ---
Date of Service August 11, 2021 Admission HPI Per Admitting Provider 61 YOM with medical history of: Polycythemia Vera, Leukocytosis, hepatic steatosis, DM II, aortic stenosis, depression, gout, C5 spinal cord tumor(follows with [facility]- found ~ 15 years ago- 5 year MRIs), post inflammator y hyperpigmentation involving lips and nose, HTN, HLD. Patient comes to the EMD today via EMS secondary to rash to his flank and groin, associated with dizziness. Patient called EMS and received Benadryl x2 and a dose of Solumederol on the way to the [facility]. In the EMD the patient received 1 epi pen, famotidine, 2 liters crystalloid and was then started on an epinephrine infusion for refractory hypotension, routine labs and blood cultures were drawn and medicine was consulted for admission. Patient reports that yesterday he went to [facility] and just felt a little queasy in his stomach on the trip, he ate chipped beef on toast prior to going to a play. During that time he got more nauseated and had diarrhea following the play. He slept on the way home and felt better by the time that he got home. He then got up did some errands and ate a sheet. Prior to bed he stared feeling feverish and fatigued, had some more episodes of diarrhea and went to sleep. He woke up this morning at around 430-500 with hives that stared on his right flank and back. He woke up around 630-700 and noted the rash had spread to his other flank, groin, as well as itching to the palm of his hands, but he did not notice rash. He denies feeling any more feveres and diarrhea appears to have resolved. He got up and had a cup of coffee and then started to feel hot flash and get dizzy so he called 911. He took benadryl this morning with no relief. He reports no new medications has been on ARB for many years he endorses. Also denies any recent immunizations or other viral prodrome over the past week. Has 2 dogs but denies any tick bites or ticks noted on him or dogs. Patient will be continued on his epi drip, will provide 1-2 liters more of crystalloid, lactate, CRP, PCT sent, BioFIRE for elena l illness sent. Will place on insulin drip as well for his increased glucose and admit to the ICU. COVID- NAAT- NEGATIVE on admission - PCR and BIOFIRE/FLu A/B pending on admission Principal Diagnosis Idiopathic anaphylaxis reaction Discharge Exam Constitutional WD/WN, vitals as above Eyes EOM intact bilaterally; no conjunctival abnormality ENMT external ear and nose normal, oropharynx normal Neck trachea midline, no thyromegaly normal visual inspection Respiratory normal respiratory effort, lungs clear to auscultation no respiratory distress Cardiovascular RRR, no murmur, no edema Gastrointestinal (Abdomen) Inspection/Auscultation: abdomen normal to inspection; abdomen not distended Musculoskeletal no cyanosis or clubbing, extremities motor strength 5/5 Skin no rashes, warm and dry Neurologic moves all extremities and awake Psychiatric Orientation: alert, oriented to person and cooperative Discharge Data Allergies Allergy/AdvReac Type Severity Reaction Status Date / Time No Known Allergies Allergy Verified 08/10/21 14:17 Consultations 08/10/21 13:04 ED Decision to Admit Stat 08/10/21 15:55 Consult Water Rights Specialist Routine Hospital Course (1) Anaphylaxis: Presumed anaphylaxis reaction with diarrhea, hives, hypotension. Was on epinephrine gtt overnight which was weaned by the morning. This was idiopathic, as he denied any change in any of his usual diet or routine. Vape pen was stable, diet was stable with no new foods, no new medications. Discussed with Dr. Freeman Marcelino who counseled Zyrtec and famotidine BID. Discharged with EpiPen and give written and verbal instructions on when to use it and to return to the hospital. Tryptase sent per Dr. Marcelino's request. -> Will f/u with allergy in 1-2 weeks. (2) Leukocytosis: WBC 18 with NLR 7.5:1- likely hemoconcentrated as well as stress response. - Still elevated on 08/11. Lower, but had also received steroids, so I think this was stress and steroids. No fever to indication infection. (3) Rash and nonspecific skin eruption: As above- anaphylaxis vs. viral vs. bacterial vs. other hypersensitivity response - Denies any change in soap, laundry detergent, skin creams, or other exposures - Biofire and cultures negative at the time of discharge. (4) FIONA (acute kidney injury): KATHY II Likely secondary to hypovolemia from SIRS and diarrhea. HCO3 is normal. - Back to baseline 0.9 on dishcarge. (5) Type 2 diabetes mellitus without complication: Elevated BG to > 400 with normal bicarb and without gap. Likely stress response as well as with steroid administration. - Off insulin drip by dishcarge. Had received Lantus 30 units SQ AM. Pharmacy felt his sugars would return to normal by tomorrow, and his A1c indicates overall satisfactory management as outpatient. (6) Spinal cord tumor: C5 patient reports this was found incidentally ~15 years ago while workup for thoracic back pain - Reports q 5 year MRI with no changes - Follows with Shaila (7) Hypertension: Held ARB in the setting of hypotension. - Return to it on discharge. (8) Aortic stenosis, moderate: Continue to optimize volume status - goal directed resuscitation to MAPS, UO, POCUS exams - would tolerate mild hypervolemia to preserve preload (9) Hepatic steatosis: LFTs normal today- history of elevation - mild elevation of bilirubin (10) Polycythemia: History of as he has had phlebotomy for this in the past- he follows with hematology for this - He is a little higher than his normal today- which may reflect intravascular volume status secondary to sirs response and diarrhea. - Back to baseline by discharge. Total Time Total Time Spent Total Time Spent (In Minutes): 45 Discharge Plan Discharge Items Patient Disposition: Home - Self-Care Reason For Visit: RASH, HYPOTENSIVE - ANAPHLAXIS VS SEPSIS Discharge Diagnosis: Unknown anaphlactic reaction Activity: Resume your previous activity Non-emergency contact: Primary Care Provider and Specialist Call non-emergency contact if: your symptoms worsen Follow-up/Referrals: Shalom Hoffman MD [Primary Care Provider] - Freeman Marcelino MD [Physician] - (Please see Dr. Marcelino as soon as possible.) Diet: Regular Addtl Attending Provider Instructions: Mr. Dimas, You had what we believe was an anaphylactic reaction. Unfortunately, we don't know why this happened at this point. If you had eaten something new, taken a new medication, or used a vape cartridge (or something along those lines), we would know exactly what caused it, and we would simply tell you *NOT* to take it any more. But, since this isn't the case, we are calling this "idiopathic" or an unknown cause. For now, take Zyrtec twice a day and Pepcid twice a day to try to prevent this from happening again. We are sending you home with an EpiPen in case you get severe symptoms again. These symptoms include: 1) Lightheaded, dizzy, about to pass out 2) Respiratory symptoms (wheezing or shortness of breath) 3) Tongue swelling, tight throat 4) Any combination of two symptoms (such as hives and belly pain) If you give yourself the EpiPen shot, you must call and return to the hospital as fast as you can. Please follow up with Dr. Marcelino as soon as they have an opening. He will talk with you about possible causes and treatments. Pending Studies at Discharge: Yes Studies:: Tryptase Stand-Alone Forms: My InhibOx, Smoking Cessation Medications and DC Order Prescriptions: New epinephrine [EpiPen] 0.3 mg/0.3 mL auto-injector 0.3 mg IM ONCE PRN (Reason: anaphylaxis) Qty: 2 RF: 0 Zyrtec 10 mg capsule 10 mg PO BID Qty: 60 RF: 0 famotidine 40 mg tablet 40 mg PO BID Qty: 60 RF: 0 Continued (DME) OneTouch Ultra Blue Test Strip Strip See Dose Instructions .ROUTE .MEDSUPPLY Qty: 200 RF: 3 (DME) lancets [OneTouch Delica Lancets] 33 gauge misc See Rx Instructions .ROUTE .MEDSUPPLY Qty: 100 RF: 3 metformin 1,000 mg tablet 1,000 mg PO BID Qty: 180 RF: 3 (DME) FreeStyle Sunil 14 Day [place] Misc See Rx Instructions .Route Qty: 1 RF: 0 (DME) FreeStyle Sunil 14 Day Sensor Kit See Rx Instructions .Route Qty: 1 RF: 5 losartan [Cozaar] 100 mg tablet 100 mg PO QAM Qty: 90 RF: 1 atorvastatin [Lipitor] 20 mg tablet 20 mg PO HS Qty: 90 RF: 1 Tradjenta 5 mg tablet 5 mg PO QAM Qty: 90 RF: 3 empagliflozin 25 mg tablet 25 mg PO QAM Qty: 90 RF: 3 sildenafil (pulm.hypertension) 20 mg tablet 20 mg PO DAILY PRN (Reason: sexual activity) Qty: 90 RF: 1 multivitamin Tablet 1 tab PO QAM RF: 0 aspirin 81 mg Tablet,Delayed Release (Dr/Ec) 81 mg PO QAM RF: 0 ascorbic acid (vitamin C) [Vitamin C] 500 mg Tablet 500 mg PO QAM RF: 0 cholecalciferol (vitamin D3) [Vitamin D3] 1,000 unit Tablet 1,000 unit PO QAM RF: 0 coQ10 (ubiquinol) 200 mg Capsule 200 mg PO QAM RF: 0 Calcium Magnesium 500 mg calcium -250 mg Tablet 1 tab PO QAM RF: 0 omeprazole 20 mg Tablet,Disintegrat, Delay Rel 1 tab PO QAM RF: 0 allopurinol 300 mg tablet 300 mg PO QAM RF: 0 escitalopram oxalate 20 mg tablet 20 mg PO QAM RF: 0 Discontinued fexofenadine [Laila Allergy] 180 mg tablet 180 mg PO QAM RF: 0 Discharge Orders: Discharge Order (Routine); Ordered 08/11/21 Ordered By: Blas Thomas Admission Data Admit Date/Time: 08/10/21 13:55 Attending Provider: Blas Thomas Admit Provider: Suman Burnett Primary Care Provider: Shalom Hoffman Other Providers: Seth Martin ; Blas Thomas Other Interventions: Discharge Summary Assessment (RN) Last Done: 08/11/21 14:04 Coding Level of Care Code D/C DAY MANAGEMENT >30 MINS Diagnoses Leukocytosis D72.829 Rash and nonspecific skin eruption R21 FIONA (acute kidney injury) N17.9 Type 2 diabetes mellitus without complication E11.9 Spinal cord tumor D49.7 Hypertension I10 Aortic stenosis, moderate I35.0 Hepatic steatosis K76.0 Polycythemia D75.1 Anaphylaxis T78.2XXA Encounter type: initial encounter
[2021-08-11] MEDS ORDERED: INSULIN ASPART PER UNIT SC SCH (16:30)
[2021-08-12] MEDS ORDERED: PANTOprazole 40 MG TAB PO SCH (09:00)
--- NOTE | 2021-08-12 13:58 | Electrocardiogram Report ---
Test Reason : Blood Pressure : / mmHG Vent. Rate : 092 BPM Atrial Rate : 092 BPM P-R Int : 172 ms QRS Dur : 090 ms QT Int : 388 ms P-R-T Axes : 021 051 044 degrees QTc Int : 479 ms Poor data quality, interpretation may be adversely affected Normal sinus rhythm with sinus arrhythmia Normal ECG When compared with ECG of 10-SEP-2019 16:49, No significant change Confirmed by Gary Covington ([id number]) on 08/12/2021 1:58:15 PM Referred By: Twan Hoffman Confirmed By:Gary Covington
== END 2021-08-11 14:42 | disposition home or self-care (01) | DRG 915 ==
LOC: ED 11:15 → 1E 13:55 → SUATTDRO 13:55 → 1E 16:06

== ENCOUNTER 2023-12-02 19:58 | Inpatient (IN) ==
--- NOTE | 2023-12-02 21:09 | Emergency Department Note ---
Impression & Plan Syncope, Severe aortic stenosis, Borderline low O2 saturation, Shortness of breath, Dehydration ED Provider Note NAME: ROBERT CHACON Jr AGE: 63 SEX: M : 1960 ARRIVES VIA: Ambulance INFORMANT: Patient ED PROVIDER(S): Tyson Degroot MD CHIEF COMPLAINT: Syncope PLAN: Disposition: Admit MEDICAL DECISION MAKING: The patient is a pleasant 63-year-old gentleman with a past medical history of severe aortic stenosis and nonobstructive CAD on recent heart catheterization on 11/22, history of hypertension, hyperlipidemia, polycythemia, MILAGROS who presents to the emergency department via EMS after having a episode of syncope which occurred in the setting of having abrupt exertion where he reports that their new puppy escaped from their home and he had to roxanne after him. He reports after catching the puppy, he returned home and was severely short of breath and lay on the couch and his reports that he suddenly lost consciousness and had vomited and lost control of his bladder and balance. Denies head strike. Patient reports feeling in his normal state of health prior to this episode and feels as though he has been eating and drinking normally and hydrating. He does admit that he has been told that he should avoid any significant exertion due to his severe aortic stenosis and that exertion tonight was more than he had done in some time. On evaluation the patient is fatigued appearing, comfortable targeting 100s and vital signs otherwise stable. He is he appears clinically dry. There is no focal neurologic deficits. He has a 3/6 systolic murmur. EKG is without overt acute ischemia. Chest x-ray with vascular congestion and interstitial thickening without focal consolidation per my preliminary independent interpretation. WBC, H/H and platelets within normal limits. Chemistry without metabolic acidosis. BUN/creatinine is 26, consistent with patient's clinical dry appearance. LFTs are unremarkable. HS troponin 5.4, wnl. TSH is 4.5 with free T4 wnl. Patient did feel improved following IV fluid hydration. Given the patient's recent heart catheterization which showed nonobstructive coronary disease unlikely to be related to ACS. Suspect likely related to patient's known severe aortic stenosis with acute exertion which may have resulted with component of flash pulmonary edema as well as acute hypotension leading to his syncope. Given the patient's O2 saturation remains low-normal on room air agrees with plan for admission for further observation. Case was discussed with Dr. Burnett, [facility] hospitalist, who will evaluate the patient for admission. Triage Nursing notes reviewed and agree them. Prior/external medical records reviewed Vital Signs: reviewed Differential diagnosis: Vasovagal event, dehydration, infection, hypoglycemia, electrolyte abnormalities, cardiac sources, intracerebral event, pulmonary embolism, seizure, toxicologic, neurologic, as well as other pathologies. ER treatment provided: See below. Diagnostics interpreted by me: ECG: Sinus rhythm first-degree AV block, 98 bpm, no ectopy, no overt ST elevation or depression, QTc 472 QRS 90. Cardiac Monitoring: An order for continuous cardiac monitoring was placed and demonstrated Sinus rhythm first-degree AV block, 98 bpm, no ectopy. Laboratory studies: See below Imaging studies: See below Consultation(s): Dr. Burnett, [facility] HPI: The patient is a pleasant 63-year-old gentleman with a past medical history of severe aortic stenosis and nonobstructive CAD on recent heart catheterization on 11/22, history of hypertension, hyperlipidemia, polycythemia, MILAGROS who presents to the emergency department via EMS after having a episode of syncope which occurred in the setting of having abrupt exertion where he reports that their new puppy escaped from their home and he had to roxanne after him. He reports after catching the puppy, he returned home and was severely short of breath and lay on the couch and his reports that he suddenly lost consciousness and had vomited and lost control of his bladder and balance. Denies head strike. Patient reports feeling in his normal state of health prior to this episode and feels as though he has been eating and drinking normally and hydrating. He does admit that he has been told that he should avoid any significant exertion due to his severe aortic stenosis and that exertion tonight was more than he had done in some time. ROS: See above HPI for pertinent positives & negatives. A total of 10 systems reviewed and were otherwise negative. VITALS:See Below PHYSICAL EXAMINATION: GENERAL: Awake, alert, fatigued-appearing, in no distress HENT: Normocephalic, atraumatic. Oropharynx with dry mucous membranes and otherwise unremarkable. EYES: Normal conjunctiva. Sclera non-icteric. EOMI. No nystamgus. PEARRL. NECK: Supple. No nuchal rigidity. FROM. No JVD. RESPIRATORY: Clear to auscultation. CARDIAC: Regular rate, normal rhythm. 3/6 systolic murmur. Extremities warm and well perfused. Pulses equal. ABDOMEN: Soft, non-distended. No tenderness to palpation. No rebound or guarding. No masses. MUSCULOSKELETAL: Chest examination reveals no tenderness. The back is symmetrical on inspection without obvious abnormality. There is no CVA tenderness to palpation. No joint edema. LOWER EXTREMITIES: Calves are equal size bilaterally and non-tender. No edema. No discoloration. NEURO: Normal sensorium. No sensory or motor deficits noted. 5/5 strength and SILT x 4 extremities. Cerebellar function intact including [id number], alternating palms. SKIN: No rash or jaundice noted. Tyson Degroot MD Past Med/Surg History Problem List (Updated 12/03/23 @ 04:42 by Tyson Degroot MD) Dehydration (Acute) Shortness of breath (Acute) Borderline low O2 saturation (Acute) Syncope (Acute) Severe aortic stenosis (Acute) Antiplatelet or antithrombotic long-term use Gout (Chronic) Spinal cord tumor C5 - MONITORING; ROM WNL Type 2 diabetes mellitus without complication (Chronic) Hypercholesterolemia (Chronic) Hypertension (Chronic) Leukocytosis Depression Hepatic steatosis Polycythemia Other sleep disorders Snoring Insufficient sleep syndrome Mild obstructive sleep apnea Lip lesion Colon cancer screening Back problem Emphysema lung Arthritis Traumatic ulcer of oral mucosa Medical History Hx of gout History of COVID-19 05/04/22, home test, not hosp; headache, high fever-symptoms lasted 24 hours only>resolved. History of aortic stenosis f/u luis a altamirano Hiatal hernia Migraine HX Anaphylaxis Back pain chronic Scoliosis Osteoarthritis GERD (gastroesophageal reflux disease) Diabetes mellitus, type 2 NIDDM Precancerous skin lesion REMOVED Cardiac murmur HX-F/U DR JELENA WILLIAMSON Hypertension Hyperlipidemia Surgical History History of amputation of finger "tip of lt index finger" History of ankle surgery (2013) LEFT -TENDON REPAIR History of bunionectomy (1994) History of herniorrhaphy (2009) umbilical History of tonsillectomy (1964) History of esophagogastroduodenoscopy (EGD) History of colonoscopy (~2012) Amputated finger (2019) Family History Aunt Family history of diabetes mellitus Uncle Family history of diabetes mellitus Father Family history of reaction to anesthesia PT REPORTS FATHER W/O ADEQUATE OXYGEN WHILE UNDER ANESTHESIA DURING VALVE REPLACEMENT SURGERY 8 YEARS AGO - COGNITIVE ISSUES SINCE. Coronary heart disease Brother Diabetes Heart disease Hypertension Sister Diabetes Grandfather Hypertension Heart disease Mother Skin cancer Denies family history of Ovarian cancer Prostate cancer Myocardial infarction Breast cancer Colonic polyp Social History Smoking Status: Former smoker Tobacco Type: Cigarettes and E-cigarettes / Vaping Age Quit Using Tobacco: 62; Cigarettes Per Day: vaping; Second Hand Exposure: Yes (as a child); Do You Dip or Chew Tobacco: No; Hx Alcohol Use: Yes Alcohol type: beer and hard liquor Alcohol Intake Frequency: Monthly or Less Hx Substance Use: Yes Non-Prescribed Medications: Marijuana Non-Prescribed Medications Comment: h/o marijuana use Last Used Substance Other:: quit 4 years ago Preferred Language: [place] Communication Ability: Effective Certified Nurse Aide Required: No Beliefs That Will Affect Care: None marital status: Current Living Situation: Spouse current occupational status: employed 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 How many Children do You have: 2 Feels Safe at Home: Yes Safety Concerns: Feels Safe At This Time Childhood Exposure to Second-Hand Smoke: Yes Diet: diabetic and regular caffeine: Yes during the past year weight has: remained stable Dental Care, Regularly: Yes Physical Activity Frequency: Does not Exercise Seatbelt Use: always Sunscreen Use: Yes Assistive Devices: Glasses Allergies Allergies Allergy/AdvReac Type Severity Reaction Status Date / Time No Known Allergies Allergy Verified 11/23/23 09:05 Home Meds Home Medications Medication Instructions Recorded Confirmed ascorbic acid (vitamin C) 500 mg 500 mg PO QAM 04/28/18 11/23/23 tablet (Vitamin C) aspirin 81 mg tablet,delayed 81 mg PO QAM 04/28/18 11/23/23 release calcium carb, gluc 500 mg 1 tab PO QAM 04/28/18 11/23/23 calcium-magnesium gluc, oxide 250 mg tablet (Calcium Magnesium) cholecalciferol (vitamin D3) 25 1,000 unit PO BID 04/28/18 11/23/23 mcg (1,000 unit) tablet (Vitamin D3) coQ10 (ubiquinol) 200 mg capsule 200 mg PO QAM 04/28/18 11/23/23 multivitamin 1 tab PO QAM 04/28/18 11/23/23 omeprazole 20 mg delayed 1 tab PO QAM 04/28/18 11/23/23 release,disintegrating tablet Saccharomyces boulardii [Daily 1 tab PO QAM 10/05/21 11/23/23 Probiotic (S. boulardii)] magnesium 200 mg tablet 200 mg PO DAILY 08/27/22 11/23/23 Previous Rx's Medication Instructions Recorded atorvastatin 20 mg tablet (Lipitor) 20 mg PO QAM #90 tabs 09/02/22 escitalopram oxalate 20 mg tablet 20 mg PO QAM #90 tabs 12/30/22 losartan 100 mg tablet (Cozaar) 100 mg PO QAM #90 tabs 01/14/23 metformin 1,000 mg tablet 1,000 mg PO BID #180 tabs 01/26/23 dulaglutide 3 mg/0.5 mL 3 mg (0.5 mL) subcut Q7D #6 mL 02/23/23 subcutaneous pen injector blood-glucose meter,continuous #1 ea 03/02/23 (Dexcom G7 Lay Out Inspector) blood sugar diagnostic #200 ea 03/16/23 blood-glucose sensor (Dexcom G7 #6 ea 03/21/23 Sensor device) blood-glucose sensor (Dexcom G7 #9 ea 03/21/23 Sensor device) sildenafil (pulm.hypertension) 20 20 mg PO DAILY PRN sexual activity 04/29/23 mg tablet #90 tabs epinephrine 0.3 mg/0.3 mL 0.3 mg (0.3 mL) IM ONCE PRN 05/30/23 injection, auto-injector (EpiPen) anaphylaxis #2 ea empagliflozin 25 mg tablet 25 mg PO QAM #90 tabs 10/20/23 allopurinol 300 mg tablet 300 mg PO QAM #90 tabs 11/08/23 Results & Data (ED) Vital Signs Vital Signs - 24 hr 12/02/23 20:00 12/02/23 20:13 12/02/23 20:42 Temperature 36.8 C Temperature Source Oral Pulse Rate 96 H 101 H 99 H Pulse Rate from SpO2 Sensor 100 H Pulse Rhythm Regular Pulse Strength Normal Respiratory Rate 18 18 Respiratory Effort / Characteristics Non-Labored Respiratory Depth Normal Blood Pressure 106/82 111/66 Blood Pressure Mean 90 81 Blood Pressure Position Sitting Pulse Oximetry 91 92 Oxygen Delivery Method Room Air Room Air Oxygen Flow Rate Sepsis Recent Fever Within 48 Hours No Sepsis New/Unexplained Change in Mental Status No Sepsis Action Taken by Nursing No Action Required Oxygen Flow Rate - Titration Pulse Oximetry Post Tiitration 12/02/23 20:52 12/02/23 22:03 Temperature Temperature Source Pulse Rate 102 H Pulse Rate from SpO2 Sensor 100 H Pulse Rhythm Pulse Strength Respiratory Rate 20 Respiratory Effort / Characteristics Respiratory Depth Blood Pressure Blood Pressure Mean Blood Pressure Position Pulse Oximetry 88 L 95 Oxygen Delivery Method Room Air Nasal Cannula Oxygen Flow Rate 0 2 Sepsis Recent Fever Within 48 Hours Sepsis New/Unexplained Change in Mental Status Sepsis Action Taken by Nursing Oxygen Flow Rate - Titration 2 Pulse Oximetry Post Tiitration 93 Laboratory Data Attestation: I reviewed the patient's lab results. 12/02/23 19:25 12/02/23 19:25 Lab Results 12/02/23 Range/Units 19:25 WBC 7.80 (4.8-10.8) K/ul RBC 5.44 (4.70-6.10) M/uL Hgb 16.8 (14.0-18.0) g/dl Hct 47.8 (42.0-52.0) % MCV 87.9 (80.0-100.0) fL MCH 30.9 (25.0-34.0) pg MCHC 35.1 (32.0-36.0) g/dL RDW Std Deviation 40.2 (36.4-46.3) fL RDW Coeff of Emma 12.7 (11.5-14.5) % Plt Count 213 (130-400) K/uL MPV 10.8 (9.4-12.4) fL Immature Gran % (Auto) 0.1 % Neut % (Auto) 41.6 % Lymph % (Auto) 42.4 % Vance % (Auto) 7.4 % Eos % (Auto) 6.8 % Baso % (Auto) 1.7 % Neut # (Auto) 3.24 (1.40-6.50) K/uL Lymph # (Auto) 3.31 (1.20-3.40) K/uL Vance # (Auto) 0.58 (0.11-0.59) K/uL Eos # (Auto) 0.53 H (0.00-0.50) K/uL Baso # (Auto) 0.13 (0.00-0.20) K/uL Immature Gran # (Auto) 0.01 (0.01-0.20) K/uL PT 10.3 (9.0-12.0) Seconds INR 0.9 (0.9-1.1) APTT 27 (21-31) Seconds PTT Ratio 1.0 Sodium 141 (136-145) mmol/L Potassium 3.8 (3.5-5.1) mmol/L Chloride 105 (98-107) mmol/L Carbon Dioxide 23 (21-32) mmol/L Anion Gap 13 H (3-11) BUN 28 H (6-23) mg/dl Creatinine 1.07 (0.6-1.4) mg/dl Est Cr Clr Drug Dosing 87.9 ml/min Est GFR ( Amer) 84.6 ml/min Est GFR (Non-Af Amer) 73.0 ml/min BUN/Creatinine Ratio 26.2 H (10-20) Glucose 157 H (70-99(Fasting)) mg/dl Calcium 10.0 (8.6-10.3) mg/dl Phosphorus 4.1 (2.5-4.9) mg/dl Magnesium 2.1 (1.7-2.4) mg/dl Total Bilirubin 0.7 (0.2-1.0) mg/dl AST 23 (13-39) U/L ALT 20 (7-52) U/L Alkaline Phosphatase 64 (34-104) U/L Troponin I High Sens 5.4 (0-20) pg/ml Total Protein 7.4 (6.0-8.3) gm/dl Albumin 4.5 (3.4-5.0) gm/dl Globulin 2.9 (2.5-4.0) gm/dl Albumin/Globulin Ratio 1.6 (0.9-2) TSH 4.513 H (0.300-4.500) uIu/ml Free T4 0.70 (0.61-1.60) ng/dl Administered Medications Potassium Chloride/Sodium Chloride (Normal Saline W/20 Meq Kcl) 20 meq in 1,000 mls @ 100 mls/hr IV .Q10H STA; Protocol Stop: 12/03/23 09:22 Last Admin: 12/02/23 23:44 Dose: 100 mls/hr Documented By: YOLANDA Discontinued Medications Sodium Chloride (Nss) 1,000 mls @ 999 mls/hr IV .Q1H1M ONE Stop: 12/02/23 22:08 Last Infusion: 12/03/23 01:08 Dose: Infused Documented By: Admin: 12/02/23 21:20 Dose: 999 mls/hr [place]ed [place]: [facility] Visit Data Chief Complaint: Syncope Stated Complaint: SOB, Weakness, Syncope ED Provider: Tyson Degroot Discharge Problem: Syncope, Severe aortic stenosis, Borderline low O2 saturation, Shortness of breath, Dehydration Patient Disposition: Admitted As Inpatient Discharge Instructions Interventions: ED Discharge Assessment Last Done: 12/03/23 01:48 Discharge Problem: Syncope Qualifiers: Syncope type: unspecified Qualified Code(s): R55 - Syncope and collapse
[2023-12-02] MEDS: SODIUM CHLORIDE 0.9% 1,000 ML IV ONE (21:20)
[2023-12-02 21:21] LABS: Basophils # (auto) 0.13 K/uL (0.00-0.20); Basophils % (auto) 1.7 %; Eosinophils # (auto) 0.53 K/uL (0.00-0.50); Eosinophils % (auto) 6.8 %; Hematocrit (blood only) 47.8 % (42.0-52.0); Hemoglobin 16.8 g/dl (14.0-18.0); Immature Granulocytes # (auto) 0.01 K/uL (0.01-0.20); Immature Granulocytes % (auto) 0.1 %; Lymphocytes # (auto) 3.31 K/uL (1.20-3.40); Lymphocytes % (auto) 42.4 %; Mean Corpuscular Hemoglobin 30.9 pg (25.0-34.0); Mean Corpuscular Hgb Conc 35.1 g/dL (32.0-36.0); Mean Corpuscular Volume 87.9 fL (80.0-100.0); Mean Platelet Volume 10.8 fL (9.4-12.4); Monocytes # (auto) 0.58 K/uL (0.11-0.59); Monocytes % (auto) 7.4 %; Neutrophils # (auto) 3.24 K/uL (1.40-6.50); Neutrophils % (auto) 41.6 %; Platelet Count 213 K/uL (130-400); RDW Coefficient of Variation 12.7 % (11.5-14.5); RDW Standard Deviation 40.2 fL (36.4-46.3); Red Blood Count 5.44 M/uL (4.70-6.10)
[2023-12-02 21:26] LABS: INR 0.9 (0.9-1.1); Partial Thromboplastin Time 27 Seconds (21-31); Prothrombin Time 10.3 Seconds (9.0-12.0)
[2023-12-02 21:48] LABS: Albumin Globulin Ratio 1.6 (0.9-2); Albumin Level 4.5 gm/dl (3.4-5.0); BUN Creatinine Ratio 26.2 (10-20); Bilirubin,Total 0.7 mg/dl (0.2-1.0); Creatinine Clr Calc Pharmacy 87.9 ml/min; Est GFR (African American) 84.6 ml/min; Globulin 2.9 gm/dl (2.5-4.0); Magnesium 2.1 mg/dl (1.7-2.4); Phosphorus 4.1 mg/dl (2.5-4.9); Potassium 3.8 mmol/L (3.5-5.1); Total Protein 7.4 gm/dl (6.0-8.3)
[2023-12-02 21:53] LABS: Troponin I High Sensitivity 5.4 pg/ml (0-20)
[2023-12-02 22:03] LABS: Thyroid Stimulating Hormone 4.513 uIu/ml (0.300-4.500)
[2023-12-02 22:38] LABS: T4 Free Thyroxine 0.7 ng/dl (0.61-1.60)
--- NOTE | 2023-12-02 23:21 | History & Physical Report ---
Date of Service December 02, 2023 Assessment & Plan (1) Syncope: (2) Severe aortic stenosis: (3) Dehydration: (4) Gout: (5) Hypercholesterolemia: (6) Hypertension: (7) Mild obstructive sleep apnea: Plan Syncope- Likely brought on by underlying severe aortic stenosis, with significant exertional component this evening, and dehydration. The patient will be admitted to telemetry for serial cardiac enzymes, serial EKG's, cardiac rhythm monitoring and a 2-D echocardiogram with Dopplers. Most recent echocardiogram on 11/02/2023 with severe aortic stenosis, ejection fraction greater than 70% Underwent cardiac catheterization on 11/23/2023, with no significant obstructive disease in major epicardial coronary arteries. There was severe branch vessel [id number] ostial D2 Continue aspirin, magnesium,. Hold losartan to allow for higher blood pressure The patient had been advised by cardiology to avoid significant exertional activity, however, he had to roxanne after his puppy this evening, and this likely helped precipitate syncopal episode Patient is also mildly dehydrated, will place on NSS + KCl 20 mill equivalents at 80 mL/h x 1 L Will consult cardiology while in hospital, as patient has had discussions with cardiology Dr. Frausto about potential valve replacement surgery Diabetes mellitus- Hold metformin, dulaglutide and empagliflozin Placed on Accu-Cheks with NovoLog SSI Hyperlipidemia- Continue atorvastatin GERD- Continue omeprazole/pantoprazole History of Present Illness Chief Complaint: The patient presents to the emergency department after a syncopal episode, where he was walking fast after a new puppy for about 4 blocks, who ran out the door while he was trying to get in. Primary Care Provider: Shalom Hoffman MD The patient is a 63-year-old male with a past medical history including severe aortic stenosis, gout, spinal cord tumor, diabetes mellitus type 2, hypercholesterolemia, hypertension, hepatic steatosis mild MILAGROS and gout. He has undergone a recent cardiology workup, including echocardiogram, and cardiac catheterization. He has been noted to have severe aortic stenosis, with e jection fraction greater than 70%, and has been told by cardiology to avoid exertional activity. Unfortunately, tonight he had to walk very quickly after he palpated snuck out the door, after picking up that puppy, he was walking back to his house, and when he got back to the house he felt like he was going to pass out. He sat down at that point and gently went down to the floor, and then subsequently awoke. He does report that he had an episode of fecal incontinence time he began to pass out, but did not have urinary incontinence Allergies Allergy/AdvReac Type Severity Reaction Status Date / Time No Known Allergies Allergy Verified 11/23/23 09:05 Home Medications Medication Instructions Recorded Confirmed Type ascorbic acid (vitamin C) 500 mg 500 mg PO QAM 04/28/18 11/23/23 History tablet (Vitamin C) aspirin 81 mg tablet,delayed 81 mg PO QAM 04/28/18 11/23/23 History release calcium carb, gluc 500 mg 1 tab PO QAM 04/28/18 11/23/23 History calcium-magnesium gluc, oxide 250 mg tablet (Calcium Magnesium) cholecalciferol (vitamin D3) 25 1,000 unit PO BID 04/28/18 11/23/23 History mcg (1,000 unit) tablet (Vitamin D3) coQ10 (ubiquinol) 200 mg capsule 200 mg PO QAM 04/28/18 11/23/23 History multivitamin 1 tab PO QAM 04/28/18 11/23/23 History omeprazole 20 mg delayed 1 tab PO QAM 04/28/18 11/23/23 History release,disintegrating tablet Saccharomyces boulardii [Daily 1 tab PO QAM 10/05/21 11/23/23 History Probiotic (S. boulardii)] magnesium 200 mg tablet 200 mg PO DAILY 08/27/22 11/23/23 History atorvastatin 20 mg tablet (Lipitor) 20 mg PO QAM #90 tabs 09/02/22 11/23/23 Rx escitalopram oxalate 20 mg tablet 20 mg PO QAM #90 tabs 12/30/22 11/23/23 Rx losartan 100 mg tablet (Cozaar) 100 mg PO QAM #90 tabs 01/14/23 11/23/23 Rx metformin 1,000 mg tablet 1,000 mg PO BID #180 tabs 01/26/23 11/23/23 Rx dulaglutide 3 mg/0.5 mL 3 mg (0.5 mL) subcut Q7D #6 mL 02/23/23 11/02/23 Rx subcutaneous pen injector blood-glucose meter,continuous #1 ea 03/02/23 11/02/23 Rx (Dexcom G7 Buttermilk Drier Operator) blood sugar diagnostic #200 ea 03/16/23 11/02/23 Rx blood-glucose sensor (Dexcom G7 #6 ea 03/21/23 11/02/23 Rx Sensor device) blood-glucose sensor (Dexcom G7 #9 ea 03/21/23 11/02/23 Rx Sensor device) sildenafil (pulm.hypertension) 20 20 mg PO DAILY PRN sexual activity 04/29/23 11/23/23 Rx mg tablet #90 tabs epinephrine 0.3 mg/0.3 mL 0.3 mg (0.3 mL) IM ONCE PRN 05/30/23 11/02/23 Rx injection, auto-injector (EpiPen) anaphylaxis #2 ea empagliflozin 25 mg tablet 25 mg PO QAM #90 tabs 10/20/23 11/23/23 Rx allopurinol 300 mg tablet 300 mg PO QAM #90 tabs 11/08/23 11/23/23 Rx Past Med/Surg History Problem List (Updated 12/03/23 @ 04:55 by Suman Burnett MD) Diabetes mellitus, type 2 NIDDM Dehydration (Acute) Shortness of breath (Acute) Borderline low O2 saturation (Acute) Syncope (Acute) Severe aortic stenosis (Acute) Antiplatelet or antithrombotic long-term use Gout (Chronic) Spinal cord tumor C5 - MONITORING; ROM WNL Type 2 diabetes mellitus without complication (Chronic) Hypercholesterolemia (Chronic) Hypertension (Chronic) Leukocytosis Depression Hepatic steatosis Polycythemia Other sleep disorders Snoring Insufficient sleep syndrome Mild obstructive sleep apnea Lip lesion Colon cancer screening Back problem Emphysema lung Arthritis Traumatic ulcer of oral mucosa Medical History Hx of gout History of COVID-19 05/04/22, home test, not hosp; headache, high fever-symptoms lasted 24 hours only>resolved. History of aortic stenosis f/u dr pandya, luis a Hiatal hernia Migraine HX Anaphylaxis Back pain chronic Scoliosis Osteoarthritis GERD (gastroesophageal reflux disease) Diabetes mellitus, type 2 NIDDM Precancerous skin lesion REMOVED Cardiac murmur HX-F/U DR JELENA PANDYA Hypertension Hyperlipidemia Surgical History History of amputation of finger "tip of lt index finger" History of ankle surgery (2013) LEFT -TENDON REPAIR History of bunionectomy (1994) History of herniorrhaphy (2010) umbilical History of tonsillectomy (1964) History of esophagogastroduodenoscopy (EGD) History of colonoscopy (~2012) Amputated finger (2019) Family History Aunt Family history of diabetes mellitus Uncle Family history of diabetes mellitus Father Family history of reaction to anesthesia PT REPORTS FATHER W/O ADEQUATE OXYGEN WHILE UNDER ANESTHESIA DURING VALVE REPLACEMENT SURGERY 8 YEARS AGO - COGNITIVE ISSUES SINCE. Coronary heart disease Brother Diabetes Heart disease Hypertension Sister Diabetes Grandfather Hypertension Heart disease Mother Skin cancer Denies family history of Ovarian cancer Prostate cancer Myocardial infarction Breast cancer Colonic polyp Social History Smoking Status: Former smoker Tobacco Type: Cigarettes and E-cigarettes / Vaping Age Quit Using Tobacco: 62; Cigarettes Per Day: vaping; Second Hand Exposure: Yes (as a child); Do You Dip or Chew Tobacco: No; Hx Alcohol Use: Yes Alcohol type: beer and hard liquor Alcohol Intake Frequency: Monthly or Less Hx Substance Use: Yes Non-Prescribed Medications: Marijuana Non-Prescribed Medications Comment: h/o marijuana use Last Used Substance Other:: quit 4 years ago Preferred Language: Telugu Communication Ability: Effective Local Bulk Driver Required: No Beliefs That Will Affect Care: None marital status: Current Living Situation: Spouse current occupational status: employed 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 How many Children do You have: 2 Feels Safe at Home: Yes Safety Concerns: Feels Safe At This Time Childhood Exposure to Second-Hand Smoke: Yes Diet: diabetic and regular caffeine: Yes during the past year weight has: remained stable Dental Care, Regularly: Yes Physical Activity Frequency: Does not Exercise Seatbelt Use: always Sunscreen Use: Yes Assistive Devices: Glasses Review of Systems Review of Systems: The patient denies chest pain, palpitations, shortness of breath, dyspnea on exertion, cough, lower extremity swelling, sore throat, fevers, chills, sweats, weight change, fatigue, nausea, vomiting, diarrhea , constipation, abdominal pain, pelvic pain, blood in urine or stool, dysuria, urinary frequency or urgency, rash, abnormal bruising or bleeding, imbalance, focal weakness, numbness or tingling in arms or legs, generalized arthralgias or myalgias, back or neck pain, or night sweats. The review of systems is otherwise negative other than for that already noted above, and at least 10 systems have been reviewed. Physical Exam Physical Exam: The patient is awake, alert and oriented 3, well developed and well nourished, normocephalic and atraumatic, lying in bed and in no acute distress. HEENT--PERRL, EOMI, mucous membranes and oropharynx mildly dry. Neck--supple. No JVD. No bruits. Thyroid normal, trachea midline, no adenopathy. Heart--normal S1 and S2. 3/6 systolic murmur. No rubs or gallops. Lungs--clear bilaterally, no respiratory distress, no accessory muscle use. Abdomen--normal bowel sounds and soft. Nontender. Nondistended, no hernias or masses, no organomegaly. Extremities--no cyanosis or clubbing. No edema. There are good distal pulses b/l. Dermatologic--normal skin turgor, normal color, no abnormal lymph nodes, no rash. Neurologic--cranial nerves II through XII grossly intact. Rheumatologic--normal range of motion. Psychiatric--normal affect. Results & Data Results & Data Vital Signs (Past 12 Hours) Vital Signs Temp Pulse Resp BP Pulse Ox O2 Del Method O2 Flow Rate 12/02/23 22:03 102 H 20 95 Nasal Cannula 2 12/02/23 20:52 88 L Room Air 0 12/02/23 20:42 99 H 18 111/66 92 Room Air 12/02/23 20:13 101 H 12/02/23 20:00 36.8 C 96 H 18 106/82 91 Room Air Laboratory Results Laboratory Results WBC 7.80 K/ul (4.8-10.8) 12/02/23 19:25 RBC 5.44 M/uL (4.70-6.10) 12/02/23 19:25 Hgb 16.8 g/dl (14.0-18.0) 12/02/23 19:25 Hct 47.8 % (42.0-52.0) 12/02/23 19:25 MCV 87.9 fL (80.0-100.0) 12/02/23 19:25 MCH 30.9 pg (25.0-34.0) 12/02/23: MCHC 35.1 g/dL (32.0-36.0) 12/02/23: RDW Std Deviation 40.2 fL (36.4-46.3) 12/02/23: RDW Coeff of Emma 12.7 % (11.5-14.5) 12/02/23: Plt Count 213 K/uL (130-400) 12/02/23: MPV 10.8 fL (9.4-12.4) 12/02/23: Immature Gran % (Auto) 0.1 % 12/02/23: Neut % (Auto) 41.6 % 12/02/23: Lymph % (Auto) 42.4 % 12/02/23: Wilcox % (Auto) 7.4 % 12/02/23: Eos % (Auto) 6.8 % 12/02/23: Baso % (Auto) 1.7 % 12/02/23: Neut # (Auto) 3.24 K/uL (1.40-6.50) 12/02/23: Lymph # (Auto) 3.31 K/uL (1.20-3.40) 12/02/23: Wilcox # (Auto) 0.58 K/uL (0.11-0.59) 12/02/23: Eos # (Auto) 0.53 K/uL (0.00-0.50) H 12/02/23: Baso # (Auto) 0.13 K/uL (0.00-0.20) 12/02/23: Immature Gran # (Auto) 0.01 K/uL (0.01-0.20) 12/02/23: PT 10.3 Seconds (9.0-12.0) 12/02/23: INR 0.9 (0.9-1.1) 12/02/23: APTT 27 Seconds (21-31) 12/02/23: PTT Ratio 1.0 12/02/23: Sodium 141 mmol/L (136-145) 08/23/24 19:25 Potassium 3.8 mmol/L (3.5-5.1) 12/02/23 19:25 Chloride 105 mmol/L (98-107) 12/02/23 19:25 Carbon Dioxide 23 mmol/L (21-32) 12/02/23 19:25 Anion Gap 13 (3-11) H 12/02/23 19:25 BUN 28 mg/dl (6-23) H 12/02/23 19:25 Creatinine 1.07 mg/dl (0.6-1.4) 12/02/23 19:25 Est Cr Clr Drug Dosing 87.9 ml/min 12/02/23 19:25 Est GFR ( Amer) 84.6 ml/min 12/02/23 19:25 Est GFR (Non-Af Amer) 73.0 ml/min 12/02/23 19:25 BUN/Creatinine Ratio 26.2 (10-20) H 12/02/23 19:25 Glucose 157 mg/dl (70-99(Fasting)) H 12/02/23 19:25 Calcium 10.0 mg/dl (8.6-10.3) 12/02/23 19:25 Phosphorus 4.1 mg/dl (2.5-4.9) 12/02/23 19:25 Magnesium 2.1 mg/dl (1.7-2.4) 12/02/23 19:25 Total Bilirubin 0.7 mg/dl (0.2-1.0) 12/02/23 19:25 AST 23 U/L (13-39) 12/02/23 19:25 ALT 20 U/L (7-52) 12/02/23 19:25 Alkaline Phosphatase 64 U/L (34-104) 12/02/23 19:25 Troponin I High Sens 5.4 pg/ml (0-20) 12/02/23 19:25 Total Protein 7.4 gm/dl (6.0-8.3) 12/02/23 19:25 Albumin 4.5 gm/dl (3.4-5.0) 12/02/23 19:25 Globulin 2.9 gm/dl (2.5-4.0) 12/02/23 19:25 Albumin/Globulin Ratio 1.6 (0.9-2) 12/02/23 19:25 TSH 4.513 uIu/ml (0.300-4.500) H 12/02/23 19:25 Free T4 0.70 ng/dl (0.61-1.60) 12/02/23 19:25 Code Status & VTE Plan Code Status Full code VTE Prophylaxis Plan VTE Prophylaxis will be ordered: Yes PG Care Time/CCT Total # of Minutes Spent Total Time Spent with Patient: Total time spent is greater than 50% in coordination of care (as documented) at patient's floor/unit and/or counseling patient: Coding Level of Care Code 28196 INT INP/OBS CARE 3/75MIN Diagnoses Syncope R55 Syncope type: unspecified Severe aortic stenosis I35.0 Dehydration E86.0 Gout M10.9 Hypercholesterolemia E78.00 Hypertension I10 Mild obstructive sleep apnea G47.33 (1) Syncope Syncope type: unspecified Qualified Code(s): R55 - Syncope and collapse
[2023-12-02] MEDS: NSS + 20MEQ KCL 20 MEQ/1,000 ML BAG IV STA (23:44)
[2023-12-03] MEDS ORDERED: DEXTROSE 50% 50 ML SYRINGE IV PRN (02:26)
[2023-12-03] MEDS ORDERED: GLUCOSE 10 TAB/TUBE PO PRN (02:26)
[2023-12-03] MEDS ORDERED: CARBOHYDRATES FOR HYPOGLYCEMIA PO PRN (02:26)
[2023-12-03] MEDS ORDERED: GLUCAGON FOR INJ 1 MG VIAL SQ PRN (02:26)
[2023-12-03] MEDS ORDERED: ACETAMINOPHEN 325 MG TAB PO PRN (02:26)
[2023-12-03] MEDS ORDERED: GLUCOSE 40% GEL 15 GM TUBE PO PRN (02:26)
[2023-12-03 05:56] LABS: Basophils # (auto) 0.14 K/uL (0.00-0.20); Basophils % (auto) 1.5 %; Eosinophils # (auto) 0.44 K/uL (0.00-0.50); Eosinophils % (auto) 4.7 %; Hematocrit (blood only) 45.7 % (42.0-52.0); Hemoglobin 15.9 g/dl (14.0-18.0); Immature Granulocytes # (auto) 0.03 K/uL (0.01-0.20); Immature Granulocytes % (auto) 0.3 %; Lymphocytes # (auto) 2.25 K/uL (1.20-3.40); Lymphocytes % (auto) 23.9 %; Mean Corpuscular Hemoglobin 30.8 pg (25.0-34.0); Mean Corpuscular Hgb Conc 34.8 g/dL (32.0-36.0); Mean Corpuscular Volume 88.4 fL (80.0-100.0); Mean Platelet Volume 10.1 fL (9.4-12.4); Monocytes # (auto) 0.66 K/uL (0.11-0.59); Neutrophils # (auto) 5.89 K/uL (1.40-6.50); Neutrophils % (auto) 62.6 %; Platelet Count 185 K/uL (130-400); RDW Coefficient of Variation 12.6 % (11.5-14.5); RDW Standard Deviation 40.7 fL (36.4-46.3); Red Blood Count 5.17 M/uL (4.70-6.10); White Blood Count 9.41 K/ul (4.8-10.8)
[2023-12-03 06:10] LABS: BUN Creatinine Ratio 28.2 (10-20); Calcium 8.9 mg/dl (8.6-10.3); Creatinine Clr Calc Pharmacy 120.6 ml/min; Est GFR (African American) 110.6 ml/min; Est GFR (Non-African American) 95.4 ml/min; Phosphorus 4.3 mg/dl (2.5-4.9); Potassium 4.2 mmol/L (3.5-5.1)
[2023-12-03 06:15] LABS: Troponin I High Sensitivity 31.5 pg/ml (0-20)
[2023-12-03] MEDS: INSULIN ASPART PER UNIT CHARGE SC SCH (07:59)
[2023-12-03] MEDS: ATORVASTATIN 20 MG TAB PO SCH (08:06)
[2023-12-03] MEDS: allopurinoL 300 MG TAB PO SCH (08:06)
[2023-12-03] MEDS: ESCITALOPRAM OXALATE 20 MG TAB PO SCH (08:07)
[2023-12-03] MEDS: CHOLECALCIFEROL 25 MCG (1000 UNITS) TAB PO SCH (08:07)
[2023-12-03] MEDS: ASPIRIN 81 MG ECTAB PO SCH (08:07)
[2023-12-03] MEDS: ASCORBIC ACID 500 MG TAB PO SCH (08:07)
[2023-12-03] MEDS: PANTOprazole 40 MG TAB PO SCH (08:08)
[2023-12-03 08:34] VITALS: RESP 14
--- NOTE | 2023-12-03 08:40 | XRay Report ---
SINGLE VIEW CHEST CLINICAL HISTORY: Atypical chest pain FINDINGS: An AP, portable, upright chest radiograph is compared to study dated 08/10/2021 and correlate d with chest CT dated 12/27/2022. The examination is degraded by portable technique and patient rotati on. The heart is enlarged. Noting atherosclerotic calcification of the thoracic aorta. The pulmonary vasculature is noncongested. Emphysema and chronic interstitial thickening is similar to previous. Th ere is mild bibasilar scarring/atelectasis. The lungs and pleural spaces are otherwise clear. No pneu mothorax is seen. The skeletal structures are osteopenic. The bony thorax is grossly intact. IMPRESSION: Cardiomegaly and emphysema with no acute cardiopulmonary abnormality identified. ACT 112: Negative or not required by law. Electronically signed by: Bradley Perez M.D. 12/03/2023 8:38 AM
[2023-12-03] MEDS ORDERED: SACCHAROMYCES BOULARDII PO SCH (09:00)
[2023-12-03] MEDS ORDERED: NON-FORMULARY MEDICATION (Magnesium 200 mg tablet) PO SCH (09:00)
[2023-12-03] MEDS ORDERED: NON-FORMULARY MEDICATION (Coq10 (Ubiquinol) 200 mg Capsule) PO SCH (09:00)
[2023-12-03] MEDS ORDERED: NON-FORMULARY MEDICATION (Calcium Carb,Gluc-Mag Gluc,Ox [Calcium Magnesium] 500 mg calcium PO SCH (09:00)
[2023-12-03 09:44] LABS: Estimated Average Glucose 114 mg/dl; Hemoglobin A1C 5.6 % (4.5-5.6)
[2023-12-03 11:22] VITALS: BP 116/80; TEMP 98.4; O2SAT 94
--- NOTE | 2023-12-03 14:43 | Discharge Summary ---
Discharge Summary Date of Service December 03, 2023 Principal Dx & Hospital Course #1 = Principal Diagnosis (1) Syncope: (2) Severe aortic stenosis: (3) Diabetes mellitus, type 2: (4) Dehydration: (5) Hypercholesterolemia: (6) Hypertension: Plan Syncope- Likely brought on by underlying severe aortic stenosis, with significant exertional component this evening, and dehydration. Was admitted to telemetry for serial cardiac enzymes, serial EKG's, cardiac rhythm monitoring and a 2-D echocardiogram with Dopplers. Most recent echocardiogram on 11/02/2023 with severe aortic stenosis, ejection fraction greater than 70% Underwent cardiac catheterization on 11/23/2023, with no significant obstructive disease in major epicardial coronary arteries. There was severe branch vessel [id number]% ostial D2 Continue aspirin, magnesium. Patient was discharged with instructions to hold losartan to allow for higher blood pressure. Reinforced that patient should avoid significant exertional activity to avoid further episodes. Follow up with Cardiology, patient needs a TAVR. Instructed patient to drink plenty of fluids. Aortic Stenosis - See #1 Follow up with Cardiology Diabetes mellitus- Resume home medication and management. Dehydration - Drink plenty of fluids Hypercholesterolemia Continue atorvastatin Hypertension Hold Losartan for now. Follow up with Cardiology. Patient instructed to resume home medications with the exception of the losartan at least temporarily to allow for higher BPs. BPs in the hopsital were WNL. Discussed with patient the importance of following up with cardiology and getting a TAVR as soon as he can manage. Reinforced the need to limit strenuous activities that could precipitate another syncopal episode. Admission HPI Per Admitting Provider The patient is a 63-year-old male with a past medical history including severe aortic stenosis, gout, spinal cord tumor, diabetes mellitus type 2, hyperchol esterolemia, hypertension, hepatic steatosis mild MILAGROS and gout. He has undergone a recent cardiology workup, including echocardiogram, and cardiac catheterization. He has been noted to have severe aortic stenosis, with ejection fraction greater than 70%, and has been told by cardiology to avoid exertional activity. Unfortunately, tonight he had to walk very quickly after he palpated snuck out the door, after picking up that puppy, he was walking back to his house, and when he got back to the house he felt like he was going to pass out. He sat down at that point and gently went down to the floor, and then subsequently awoke. He does report that he had an episode of fecal incontinence time he began to pass out, but did not have urinary incontinence Discharge Exam The patient is awake, alert and oriented 3, well developed and well nourished, normocephalic and atraumatic, lying in bed and in no acute distress. HEENT--PERRL, EOMI, mucous membranes and oropharynx mildly dry. Neck--supple. No JVD. No bruits. Thyroid normal, trachea midline, no adenopathy. Heart--normal S1 and S2. 3/6 systolic murmur. No rubs or gallops. Lungs--clear bilaterally, no respiratory distress, no accessory muscle use. Abdomen--normal bowel sounds and soft. Nontender. Nondistended, no hernias or masses, no organomegaly. Extremities--no cyanosis or clubbing. No edema. There are good distal pulses b/l. Dermatologic--normal skin turgor, normal color, no abnormal lymph nodes, no rash. Neurologic--cranial nerves II through XII grossly intact. Rheumatologic--normal range of motion. Psychiatric--normal affect. Discharge Plan Discharge Items Patient Disposition: Home - Self-Care Reason For Visit: SYNCOPE, SEVERE , DEHYDRATION Discharge Diagnosis: Syncope (Fainting due to your tight aortic valve) Activity: Per Instructions section Non-emergency contact: Primary Care Provider and Zoo Keeper Call non-emergency contact if: you have any medication questions and your symptoms worsen Follow-up/Referrals: Shalom Hoffman MD [Primary Care Provider] - 12/14/23 2:00 pm (Scheduled with BRAVO Liu on 12/14/23 at 2:00 pm) Diet: Regular Addtl Attending Provider Instructions: Syncope (fainting - your fainting spell appears to have been related to exertion in the context of your tight aortic valve. As we discussed, when you have a tight aortic valve and ask as a "bottleneck" for blood flowand when your body needs more blood flow with exertion, sometimes this "bottleneck" can lead to less blood flow getting out of your heart than your body needs. This lack of blood flow can cause a fainting spell as happened to you - unfortunately, until you get your aortic valve repaired, this sort of problem could easily happen again and again. Right now, we know that the "ceiling" for exertion for you is at the most not as much exertion as it was chasing after your dogunfortunately that means that the ceiling is rather low. To protect yourself, until your valve is replaced, you will need to take it very easy. - For the short-term, we have your losartan on holdthis is really just to allow your blood pressures to run a little higher and make it may be a little less likely would faint if the pressures drop due to the tight aortic valvebut is not likely to make a big difference, and again the main "game plan" would be getting the valve repaired. (Please note there is nowhere in the computer system to allow the medicine to be "held indefinitely" which is why we have it labeled as "stop"I would definitely not throw the losartan away as I expect you to be back on it in the fairly near future) - we would definitely recommend that you move more quickly to getting the aortic valve replaced than your original plan of waiting till [place]. Often when people start passing out from a tight aortic valve bad events happen more and more frequently. To that end, we will ask our team to try to facilitate getting you in with [facility] to have this valve fixed sooner rather than later. Pending Studies at Discharge: No Stand-Alone Forms: My [facility] [place], Smoking Cessation Medications and DC Order Prescriptions: Continued atorvastatin [Lipitor] 20 mg tablet 20 mg PO QAM Qty: 90 3RF escitalopram oxalate 20 mg tablet 20 mg PO QAM Qty: 90 3RF metformin 1,000 mg tablet 1,000 mg PO BID Qty: 180 3RF dulaglutide 3 mg/0.5 mL pen injector 3 mg subcut Q7D Qty: 6 3RF Rx Instructions: 3 mg subcutaneously weekly; Tuesday (DME) Dexcom G7 Remediation Consultant Misc See Rx Instructions .Route Qty: 1 0RF Rx Instructions: As directed (DME) blood sugar diagnostic Strip See Dose Instructions .ROUTE .MEDSUPPLY Qty: 200 3RF Dose Instruction: As directed Rx Instructions: test sugars twice daily (DME) Dexcom G7 Sensor Device See Rx Instructions .Route Qty: 6 5RF Rx Instructions: As directed (DME) Dexcom G7 Sensor Device See Rx Instructions .Route Qty: 9 3RF Rx Instructions: As directed sildenafil (pulm.hypertension) 20 mg tablet 20 mg PO DAILY PRN (Reason: sexual activity) Qty: 90 1RF Rx Instructions: 1-5 Tablets as needed for sexual activity, Do not exceed 100mg daily epinephrine [EpiPen] 0.3 mg/0.3 mL auto-injector 0.3 mg IM ONCE PRN (Reason: anaphylaxis) Qty: 2 0RF Rx Instructions: Call if you have to give yourself this medication. empagliflozin 25 mg tablet 25 mg PO QAM Qty: 90 3RF allopurinol 300 mg tablet 300 mg PO QAM Qty: 90 3RF magnesium 200 mg tablet 200 mg PO DAILY multivitamin Tablet 1 tab PO QAM aspirin 81 mg Tablet,Delayed Release (Dr/Ec) 81 mg PO QAM ascorbic acid (vitamin C) [Vitamin C] 500 mg Tablet 500 mg PO QAM cholecalciferol (vitamin D3) [Vitamin D3] 1,000 unit Tablet 1,000 unit PO BID coQ10 (ubiquinol) 200 mg Capsule 200 mg PO QAM Calcium Magnesium 500 mg calcium -250 mg Tablet 1 tab PO QAM Saccharomyces boulardii [Daily Probiotic (S. boulardii)] 250 mg Capsule 250 mg PO DAILY Discontinued losartan [Cozaar] 100 mg tablet 100 mg PO QAM Qty: 90 3RF Discharge Orders: Discharge Order (Routine); Ordered 12/03/23 Ordered By: Fabio Hernandez/Other Patient Handouts: Aortic Stenosis, Understanding High Blood Pressure, Hypertension Dc Admission Data Admit Date/Time: 12/02/23 23:20 Attending Provider: Fabio Bach Admit Provider: Suman Burnett Primary Care Provider: Shalom Hoffman Other Providers: Suman Burnett Other Interventions: Discharge Summary Assessment (RN) Last Done: 12/03/23 15:35 Hospital Stay Data Consultations 12/02/23 22:41 ED Decision to Admit Stat Pending Results Patient Have Any Pending Studies at Discharge: No Discharge Instructions Given to Patient (Per Discharging Provider) Syncope (fainting - your fainting spell appears to have been related to exertion in the context of your tight aortic valve. As we discussed, when you have a tight aortic valve and ask as a "bottleneck" for blood flowand when your body needs more blood flow with exertion, sometimes this "bottleneck" can lead to less blood flow getting out of your heart than your body needs. This lack of blood flow can cause a fainting spell as happened to you - unfortunately, until you get your aortic valve repaired, this sort of problem could easily happen again and again. Right now, we know that the "ceiling" for exertion for you is at the most not as much exertion as it was chasing after your dogunfortunately that means that the ceiling is rather low. To protect yourself, until your valve is replaced, you will need to take it very easy. - For the short-term, we have your losartan on holdthis is really just to allow your blood pressures to run a little higher and make it may be a little less likely would faint if the pressures drop due to the tight aortic valvebut is not likely to make a big difference, and again the main "game plan" would be getting the valve repaired. (Please note there is nowhere in the computer system to allow the medicine to be "held indefinitely" which is why we have it labeled as "stop"I would definitely not throw the losartan away as I expect you to be back on it in the fairly near future) - we would definitely recommend that you move more quickly to getting the aortic valve replaced than your original plan of waiting till [place]. Often when people start passing out from a tight aortic valve bad events happen more and more frequently. To that end, we will ask our team to try to facilitate getting you in with [facility] to have this valve fixed sooner rather than later. Supervising Physician Co-Signing Physician Notes I personally examined the patient and verified all blackmon points of history and exam, discussed case, and agree with decision making with A Lucero CORDON Feeling better and feels up to going home. Vitals noted, in general he is awake and alert pleasant no distress. HEENT normocephalic atraumatic mucous membranes moist. Breathing unlabored no accessory muscle use good effort. Skin without rashes pallor or icterus. Neuro without focal deficits. Syncopein the context of severe aortic stenosisbeing set up for TAVR, but exerted himself too much and passed out. Safe/stable for home. Ongoing close follow-up for outpatient TAVRwill ask nurse navigator to facilitate if at all possible. Patient was originally planning on waiting until over [place] to have it donebut discussed that with the syncopal episode it would be of his benefit to do it sooner rather than later. Otherwise as above Total Time Total Time Spent Total Time Spent (In Minutes): 25 Coding Level of Care Code 10595 IN/OBS DISCH 30 MIN/LESS Diagnoses Syncope R55 Syncope type: unspecified Severe aortic stenosis I35.0 Diabetes mellitus, type 2 E11.9 Dehydration E86.0 Hypercholesterolemia E78.00 Hypertension I10
[2023-12-03 15:47] VITALS: PULSE 71
--- NOTE | 2023-12-03 18:05 | Billing Data ---
Date of Service December 03, 2023 Coding Level of Care Code 30723 IN/OBS DISCH 30 MIN/LESS
== END 2023-12-03 16:50 | disposition home or self-care (01) | DRG 307 ==
LOC: ED 19:58 → SUATTDRO 23:20 → 2E 23:20